=== PATIENT | male | born 1980 | race Caucasian/White ===

== ENCOUNTER 2020-06-25 06:00 | Outpatient (RCR) | payer OTHER, SELFPAY ==
--- NOTE | 2020-06-25 14:34 | P.PNPSP_ITS ---
Subjective Subjective Date of Service: 06/25/20 Reason For Visit: F31.81 Interim History: Pedro reports he is tolerating medications well. Finds the Seroquel amazing for assisting with sleep and mood. Does reports feeling physically tired . Believes this is related to his depression, ADHD and boredom. Reports he will begin [facility] three times per week, MWF for one hour. Reflects that pre-pandemic, he felt less depressed and well when he had daily stimulation, different tasks and activities and an opportunity to process things. Plans to meet with his prescriber on 06/28 and will discuss titration of Strattera as planned. Also considering a return to [facility] (where he is a member) as he has been informed they are open and members are being welcomed to return. Asks to hold labs until he meets with OP team. Medication Compliance: Yes Side effects from medications: No Attending Groups: Yes Mental Status Exam Mental Status Exam Patient Appearance: Fatigued Patient Orientation: Person, Place, Time and Situation Level of Consciousness: Awake and Appropriate Patient Behavior: Appropriate Mood Description: Calm Affect Description: Calm Patient Cognition Impaired: No Ability to Follow Directions: Excellent Speech Pattern: Clear Memory Description: Intact Hallucinations: None Delusions: Not Present Thought Process: Intact Depressive Symptoms: Increased Fatigue and Loss of Energy Judgement: Good Diagnostics Labs Labs: Plans to do these with OP team. Will order if pt reconsiders. Assessment & Plan Patient educated on: medication risk/benefits and therapeutic strategies Informed Consent: understands Reason for contiued partial hosp. stay Substantial Risk for: rapid decompensation Certification I certify that partial hospital treatment is medically necessary due to the symptoms and problems resulting from the patient's mental illness and the failure to treat the patient at the partial hospital level of care would likely result in the patient requiring inpatient psychiatric care which could not be prevented at a less intensive level of care. Greater than 50% of the session was spent on counseling and/or coordination of care Discharge Plan Discharge Attending provider: John Mueller Additional Instructions: No medication changes today. Medications: No Action Depakote 250 mg 250 mg PO DAILY RF: 0 Depakote 500 mg 500 mg PO DAILY RF: 0 Seroquel 25 mg 25 mg PO BID RF: 0 Strattera 18 mg 18 mg PO BID RF: 0 hydroxyzine pamoate 25 mg 25 - 50 mg PO Q6-8H PRN (Reason: Anxiety) RF: 0 omeprazole 20 mg 20 mg PO DAILY RF: 0 levothyroxine 75 mcg 75 mcg PO DAILY RF: 0
== END 2020-06-25 23:55 | disposition home or self-care (01) ==
LOC: HO.PHPA 06:00
PROVIDERS: Visit Provider Psychiatry & Neurology Psychiatry
DX: F31.81 Bipolar II disorder (principal); F41.1 Generalized anxiety disorder; F90.9 Attention-deficit hyperactivity disorder, unspecified type; F12.20 Cannabis dependence, uncomplicated
CPT/HCPCS: 90853; 99213

== ENCOUNTER 2020-07-12 10:01 | Outpatient (REF) | payer MEDICAID, SELFPAY ==
[2020-07-12 11:52] LABS: Alanine Aminotransferase 31 U/L (0-40); Albumin Level 4.2 g/dL (3.5-5.0); Alkaline Phosphatase 68 U/L (39-117); Aspartate Amino Transferase 17 U/L (5-37); Bilirubin Direct 0.2 mg/dL (0.0-0.5); Bilirubin Total 0.2 mg/dL (0.0-1.0); Total Protein 7.1 g/dL (6.5-8.0)
[2020-07-12 12:08] LABS: Amphetamine Screen Urine Not Detected (Not Detect); Barbiturates, Urine Not Detected (Not Detect); Benzodiazepines Screen Urine Not Detected (Not Detect); Cannabinoid Screen Urine Not Detected (Not Detect); Cocaine Screen Urine Not Detected (Not Detect); Opiate Screen Urine Not Detected (Not Detect); Phencyclidine Screen Urine Not Detected (Not Detect)
[2020-07-12 12:26] LABS: Valproate 39.3 mcg/mL (50.0-100.0)
== END 2020-07-12 10:02 | disposition home or self-care (01) ==
LOC: HO.LAB 10:01
PROVIDERS: Absent Provider Clinical Nurse Specialist Psychiatric/Mental Health, Adult; PCP Internal Medicine; Visit Provider Nurse Practitioner Family
DX: F12.90 Cannabis use, unspecified, uncomplicated (principal); F31.70 Bipolar disorder, currently in remission, most recent episode unspecified
CPT/HCPCS: 80076; 80164; 80307

== ENCOUNTER 2020-09-08 15:05 | Outpatient (REF) | payer MEDICAID, SELFPAY ==
[2020-09-08 16:07] LABS: Alanine Aminotransferase 34 U/L (0-40); Albumin Level 4.2 g/dL (3.5-5.0); Alkaline Phosphatase 66 U/L (39-117); Aspartate Amino Transferase 20 U/L (5-37); Bilirubin Direct 0.2 mg/dL (0.0-0.5); Bilirubin Total 0.5 mg/dL (0.0-1.0); Total Protein 7.1 g/dL (6.5-8.0)
[2020-09-08 16:13] LABS: Valproate 45.9 mcg/mL (50.0-100.0)
[2020-09-08 16:33] LABS: Amphetamine Screen Urine Not Detected (Not Detect); Barbiturates, Urine Not Detected (Not Detect); Benzodiazepines Screen Urine Not Detected (Not Detect); Cannabinoid Screen Urine Not Detected (Not Detect); Cocaine Screen Urine Not Detected (Not Detect); Opiate Screen Urine Not Detected (Not Detect); Phencyclidine Screen Urine Not Detected (Not Detect)
== END 2020-09-08 15:06 | disposition home or self-care (01) ==
LOC: HO.LAB 15:05
PROVIDERS: PCP Internal Medicine; Visit Provider Nurse Practitioner Family
DX: F12.90 Cannabis use, unspecified, uncomplicated (principal); F31.70 Bipolar disorder, currently in remission, most recent episode unspecified
CPT/HCPCS: 80076; 80164; 80307

== ENCOUNTER 2020-11-29 10:12 | Outpatient (REF) | payer MEDICAID, SELFPAY ==
[2020-11-29 11:20] LABS: Alanine Aminotransferase 59 U/L (0-40); Albumin Level 4.4 g/dL (3.5-5.0); Alkaline Phosphatase 69 U/L (39-117); Aspartate Amino Transferase 27 U/L (5-37); Bilirubin Direct 0.2 mg/dL (0.0-0.5); Bilirubin Total 0.3 mg/dL (0.0-1.0); Total Protein 7.3 g/dL (6.5-8.0)
[2020-11-29 11:30] LABS: Valproate 63.8 mcg/mL (50.0-100.0)
== END 2020-11-29 10:13 | disposition home or self-care (01) ==
LOC: HO.LAB 10:12
PROVIDERS: PCP Internal Medicine; Visit Provider Nurse Practitioner Family
DX: F31.9 Bipolar disorder, unspecified (principal)
CPT/HCPCS: 36415; 80076; 80164

== ENCOUNTER 2023-08-01 11:06 | Outpatient (REF) | payer MEDICARE, MEDICAID, SELFPAY ==
[2023-08-01 15:14] LABS: TSH reflex Free T4 2.04 uIU/mL (0.32-4.0)
== END 2023-08-01 11:07 | disposition home or self-care (01) ==
LOC: HO.CHCLDS 11:06
PROVIDERS: Visit Provider Internal Medicine
DX: E03.8 Other specified hypothyroidism (principal)
CPT/HCPCS: 36415; 84443

== ENCOUNTER 2023-08-15 11:33 | Outpatient (REF) | payer MEDICARE, MEDICAID, SELFPAY | END 2023-08-15 11:34 | disposition home or self-care (01) | LOC: HO.CHCLDS 11:33 | PROVIDERS: Visit Provider Nurse Practitioner Family | DX: F31.77 Bipolar disorder, in partial remission, most recent episode mixed (principal); Z79.899 Other long term (current) drug therapy | CPT/HCPCS: 36415; 80164 ==

== ENCOUNTER 2023-10-22 14:50 | Outpatient (REF) | payer MEDICARE, MEDICAID, SELFPAY ==
[2023-10-22 18:12] LABS: Influenza A PCR NEGATIVE (Negative); Influenza B PCR NEGATIVE (Negative); Resp Syncy Virus RNA Qual PCR NEGATIVE (Negative); SARS COV2 PCR INHOUSE NEGATIVE (Negative)
== END 2023-10-22 14:51 | disposition home or self-care (01) ==
LOC: HO.CHCLNP 14:50
PROVIDERS: Visit Provider Family Medicine
DX: J06.9 Acute upper respiratory infection, unspecified (principal); Z11.52 Encounter for screening for COVID-19
CPT/HCPCS: 0241U

== ENCOUNTER 2023-11-28 12:43 | Outpatient (REF) | payer MEDICARE, MEDICAID, SELFPAY ==
[2023-11-28 15:32] LABS: Alanine Aminotransferase 35 U/L (0-40); Albumin Level 4.4 g/dL (3.5-5.0); Alkaline Phosphatase 74 U/L (39-117); Anion Gap 12 (12-20); Aspartate Amino Transferase 20 U/L (5-37); Bilirubin Total 0.5 mg/dL (0.0-1.0); Blood Urea Nitrogen 16 mg/dL (9-16); Calcium 9.4 mg/dL (8.4-10.2); Carbon Dioxide 27 mmol/L (22-29); Chloride 103 mmol/L (96-108); Cholesterol 115 mg/dL (<200); Estimated Glomerular Filt Rate > 60; Glucose Random 69 mg/dL (60-115); HDL Cholesterol 38 mg/dL (>40); LDL Cholesterol Calculated 50 mg/dL (<100); Potassium 3.9 mmol/L (3.3-5.1); Sodium 138 mmol/L (135-145); Total Protein 7.6 g/dL (6.5-8.0); Triglycerides 137 mg/dL (<150)
== END 2023-11-28 12:44 | disposition home or self-care (01) ==
LOC: HO.CHCLDS 12:43
PROVIDERS: Visit Provider Internal Medicine
DX: E78.00 Pure hypercholesterolemia, unspecified (principal)
CPT/HCPCS: 36415; 80053; 80061

== ENCOUNTER 2025-02-02 10:07 | Outpatient (REF) | payer MEDICARE, MEDICAID, SELFPAY ==
--- OUTSIDE RECORDS SUMMARY | 2025-02-02 10:35 | XMS_ITS | Encounter Summary ---
Author Organization [employer] Address [address] [place] [address] 7 [place] [address] Care Team Providers Care Riding Double Name Role Phone Yamileth Butler MD Primary Care Provider Oscar Gong CUSTODIAL MANAGER Unavailable Unavailable Joel Retana Unavailable Gia Santana RN Unavailable [phone] Encounter Details Date Type Department Care Team (Late st Contact Info) Description 12/12/2022 Abstract [facility] [address] [place] [address] Yamileth Butler MD [address] [place], [place] [id number] Social History Tobacco Use Types Packs/Day Years Used Date Smoking Tobacco: Never Assessed Sex and Gender Information Value Date Recorded Sex Assigned at Male 07/24/2022 10:22 AM EDT Legal Sex Male 10:22 AM EDT Gender Identity Male 07/24/2022 10:22 AM EDT Sexual Orientation Straight 07/24/2022 10 :22 AM EDT documented as of this encounter Plan of Treatment Not on file documented as of this encounter Visit Diagnoses Not on filedocumented in this encounter Additional Health Concerns Assessment Noted Time PHQ-9 Depression Total Score: 2 12/01/19 23 11:07 AM EST documented as of this encounter Care Teams Riding Double Relationship Specialty Start Date End Date Yamileth Butler MD [address] [place] [address] PCP - General Internal Medicine 1/1/19 Oscar Gong FNP [address] [place] [address] Nurse Practitioner Family Medicine 08/14/23 Joel Retana Community Health Worker 02/22/24 Gia Santana RN [address] [place] [address] Sheeter Operator 02/22/24 04/01/24 [facility] 03/17/20 documented as of this encounter
--- OUTSIDE RECORDS SUMMARY | 2025-02-02 10:35 | XMS_ITS | Encounter Summary ---
Author Organization [employer] Address [address] [place] [address] Care Team Providers Care Insulation Board Coater Operator Name Role Phone Yamileth Butler MD Primary Care Provider [phone] Oscar Gong Unavailable Unavailable Encounter Details Date Type Department Care Team (Latest Contact Info) Description 01/29/2025 Travel Social History Tobacco Use Types Packs/Day Years Used Date Smoking Tobacco: Every Day Cigarettes Passive Smoke Exposure: Never Smokeless Tobacco: Never Alcohol Use Standard Drinks/Week Comments Never 0 (1 standard drink = 0.6 oz pur e alcohol) Depression Answer Date Recorded Patient Health Questionnaire-9 Score 0 02/25/2024 Patient Health Questionnaire-9 Score 0 02/25/2024 Last PHQ-9: Questionnaire Data Not on file 0 02/25/2024 Housing Stability Answer Date Recorded What is your housing situation today? I have claudia howe 08/01/[address] you li ve. Do you have problems with any of the following? None of the above 08/01/2023 Food Insecurity Answer Date Recorded Within the past 12 months, y ou worried that your food would run out before you got money to buy more: Never True 08/01/2023 Within the past 12 months,th e food you bought just didn't last and you didn't have enough money to get more: Never True 04/2023 Transportation Answer Date Recorded In the past 12 months, has l ack of transportation kept you from medical appts, meetings, work or from getting things needed for daily living? No 08/01/2023 Utilities Answer Date Recorded In the past 12 months, has t he electric, gas, oil or water company threatened to shut off services in your home? No 08/01/2023 Depression Answer Date Recorded Patient Health Questionnaire-2 Score 0 02/25/2024 Sex and Gender Information Value Date Recorded [...] Assessment Noted Time PHQ-9 Depression Total Score: 0 02/25/20 24 11:38 AM EDT documented as of this encounter Care Teams Insulation Board Coater Operator Relationship Specialty Start Date End Date Yamileth Butler MD [address] [place] [address] PCP - General Internal Medicine 09/24/18 Oscar Gong FNP [address] [place] [address] Nurse Practitioner Family Medicine 08/14/23 [facility] 03/17/20 documented as of this encounter
--- OUTSIDE RECORDS SUMMARY | 2025-02-02 10:35 | XMS_ITS | Encounter Summary ---
Author Organization [employer] Address [address] [facility] [address] [place] [address] Care Team Providers Care Currency Examiner Name Role Phone Yamileth Butler MD Primary Care Provider [phone] Oscar Gong WASHROOM CLEANER Unavailable Unavailable Joel Retana Unavailable Gai Santana RN Unavailable [phone] Encounter Details Date Type Department Care Team (Late st Contact Info) Description 03/28/2023 Abstract [facility] [address] [place] [address] Yamileth Butler MD [address] [place] [address] Social History Tobacco Use Types Packs/Day Years Used Date Smoking Tobacco: Never Assessed Sex and Gender Information Value Date Recorded Sex Assigned at Male 07/24/2022 10:22 AM EDT Legal Sex Male 10:22 AM EDT Gender Identity Male 07/24/2022 10:22 AM EDT Sexual Orientation Straight 07/24/2022 10 :22 AM EDT COVID-19 Exposure Response Date Recorded In the last 10 days, have yo u been in contact with someone who was confirmed or suspected to have Coronavirus/COVID-19? No / Unsure 03/26/2023 10:54 AM EDT documented as of this encounter Plan of Treatment Not on file documented as of this encounter Visit Diagnoses Not on filedocumented in this encounter Additional Health Concerns Assessment Noted Time PHQ-9 Depression Total Score: 4 02/14/20 23 3:10 PM EDT documented as of this encounter Care Teams Currency Examiner Relationship Specialty Start Date End Date Yamileth Butler MD [address] [place] [address] PCP - General Internal Medicine 09/24/18 Oscar Gong FNP [address] [place] [address] Nurse Practitioner Family Medicine 08/14/23 Joel Retana Community Health Worker 02/22/24 Gia Santana RN [address] [place] [address] Foundry Worker General 02/22/24 04/01/24 [facility] 03/17/20 documented as of this encounter
--- OUTSIDE RECORDS SUMMARY | 2025-02-02 10:35 | XMS_ITS | Encounter Summary ---
Author Organization [employer] Address [address] [place] [address] 7 [place] [address] Care Team Providers Care Audio Visual Technician Name Role Phone Yamileth Butler MD Primary Care Provider [phone] Oscar Gong Unavailable Unavailable Joel Retana Unavailable Gia Santana RN Unavailable [phone] Encounter Details Date Type Department Care Team (Late st Contact Info) Description 11/07/2022 Orders Only [facility] [address] [place] [address] Courtney Antony LPN Social History Tobacco Use Types Packs/Day Years [...] Assessment Noted Time PHQ-9 Depression Total Score: 3 10/05/19 23 11:11 AM EST documented as of this encounter Care Teams Audio Visual Technician Relationship Specialty Start Date End Date Yamileth Butler MD [address] [place] [address] PCP - General Internal Medicine 09/24/18 Oscar Gong FNP [address] [place] [address] Nurse Practitioner Family Medicine 08/14/23 Joel Retana Community Health Worker 02/22/24 Gia Santana RN [address] [place] [address] Coffee Urn Attendant 02/22/24 04/01/24 [facility] 03/17/20 documented as of this encounter
--- OUTSIDE RECORDS SUMMARY | 2025-02-02 10:35 | XMS_ITS | Encounter Summary ---
Author Organization [email or web address] Address [address] [facility] [address] [place] [address] Care Team Providers Care Track Fitter Name Role Phone Yamileth Butler MD Primary Care Provider [phone] Oscar Gong Unavailable Unavailable Encounter Details Date Type Department Care Team (Latest Contact Info) Description 01/29/2025 2:30 PM EDT Office Visit [facility] [address] [place] [address] Yamileth Butler MD [address] [place] [address] Hypercholesterolemia (Primary Dx); Elevated BP without diagnosis of hypertension; Class 1 obesity due to excess calories with serious comorbidity and body mass index (BMI) of 32.0 to 32.9 in adult; Bipolar disorder, in partial remission, most recent episode mixed (CMS/HCC); Other specified hypothyroidism; Encounter for immunization Social History Tobacco Use Types Packs/Day Years [...] t he electric, gas, oil or water [employer] threatened to shut off services in your home? No 08/01/2023 Depression Answer Date Recorded Patient Health Questionnaire-2 Score 0 02/25/2024 Sex and Gender Information Value Date Recorded Sex Assigned at Male 07/24/2022 10:22 AM EDT Legal Sex Male 10:22 AM EDT Gender Identity Male 07/24/2022 10:22 AM EDT Sexual Orientation Straight 07/24/2022 10 :22 AM EDT documented as of this encounter Last Filed Vital Signs Vital Sign Reading Time Taken Comments Blood Pressure 140/80 01/29/2025 2:20 PM EDT Pulse 85 01/29/2025 2:20 PM EDT Temperature 36.8 ??C (98.2 ??F) 01/29/2025 2:20 PM ED T Respiratory Rate 20 01/29/2025 2:20 PM EDT Oxygen Saturation 97% 01/29/2025 2:20 PM EDT Inhaled Oxygen Concentration - - Weight 101 kg (223 lb) 01/29/2025 2:20 PM EDT Height 177.8 cm (5' 10 ) 01/29/2025 2:20 PM EDT Body Mass Index 32 01/29/2025 2:20 PM EDT documented in this encounter Progress Notes * Yamileth Butler MD - 01/29/2025 2:30 PM EDT SUBJECTIVE Pedro King is a 44 y.o. male who presents for No chief complaint on file.. HPI Denies any acute events since the last visit. Patient is otherwise compliant with his regular medication and follows up with his therapist and psychiatrist. He states that he is having a good day today. Patient Active Problem List Diagnosis Bipolar disorder, in partial remission, most recent episode mixed (CMS/HCC) ADHD, adult residual type Marijuana dependence (CMS/HCC) Hypercholesterolemia Upper respiratory tract infection Vertigo No Known Allergies Current Outpatient Medications on File Prior to Visit Medication Sig Dispense Refill Aspirin Low Dose 81 MG EC tablet TAKE 1 TABLET (81 MG) BY MOUTH IN THE MORNING 90 tablet 1 atomoxetine (Strattera) 18 MG capsule Take 1 capsule (18 mg) by mouth 2 times daily. Swallow capsule whole; do not open. 180 capsule 3 atorvastatin (Lipitor) 40 MG tablet TAKE 1 TABLET BY MOUTH EVERY DAY atorvastatin (Lipitor) 40 MG tablet TAKE 1 TABLET BY MOUTH EVERY DAY 90 tablet 1 azithromycin (Zithromax) 250 MG tablet 500 mg on day 1, 250 mg day 2 to 5 6 tablet 0 cholecalciferol (Vitamin D-3) 50 MCG (2000 UT) capsule 1 capsule a day cholecalciferol (Vitamin D-3) 50 MCG (2000 UT) capsule TAKE 1 CAPSULE BY MOUTH EVERY DAY 90 capsule1 cholecalciferol VITAMIN D (Vitamin D-3) 50 MCG (2000 UT) capsule TAKE 1 CAPSULE BY MOUTH EVERY DAY 90 capsule 3 divalproex (Depakote ER) 500 MG 24 hr tablet TAKE 1 TABLET BY MOUTH THREE TIMES DAILY. DO NOT CRUSH, CHEW, OR SPLIT. 270 tablet 3 guaiFENesin (Mucinex) 600 MG 12 hr tablet Take 2 tablets (1,200 mg) by mouth 2 times daily. Do not crush, chew, or split. 30 tablet 0 hydrOXYzine HCl (Atarax) 25 MG tablet Take 1-2 tablets (25-50 mg) by mouth every 6 (six) hours if needed for anxiety. 200 tablet 3 isosorbide mononitrate ER (Imdur) 30 MG 24 hr tablet Take 1 tablet (30 mg) by mouth in the morning.Do not crush or chew. 30 tablet 3 isosorbide mononitrate ER (Imdur) 30 MG 24 hr tablet TAKE 1 TABLET BY MOUTH EVERY MORNING 90 tablet1 levothyroxine (Synthroid, Levoxyl) 75 MCG tablet TAKE 1 TABLET BY MOUTH EVERY DAY 90 tablet 1 levothyroxine (Synthroid, Levoxyl) 75 MCG tablet TAKE 1 TABLET BY MOUTH EVERY DAY IN THE MORNING 90tablet 3 Multiple Vitamin (Daily-Paulino Multivitamin) tablet TAKE 1 TABLET BY MOUTH EVERY DAY 90 tablet 1 Multiple Vitamin (Multi-Vitamin) tablet take 1 Tablet by Oral route once nicotine (Nicoderm CQ) 14 MG/24HR patch Place 1 patch on the skin 1 (one) time each day at the sametime. 30 patch 0 omeprazole (PriLOSEC) [address] capsule take 1 capsule by oral route every day before a meal omeprazole (PriLOSEC) [address] capsule TAKE 1 CAPSULE BY MOUTH EVERY DAY BEFORE A MEAL 90 capsule 1 omeprazole (PriLOSEC) [address] capsule TAKE 1 CAPSULE BY MOUTH EVERY DAY BEFORE A MEAL 90 capsule 1 QUEtiapine (SEROquel) 25 MG tablet Take 1 tablet (25 mg) by mouth 2 times daily. 180 tablet 3 Tirzepatide-Weight Management (Zepbound) 2.5 MG/0.5ML solution auto-injector Inject 0.5 mL (2.5 mg)under the skin 1 (one) time per week. 2 mL 1 No current facility-administered medications on file prior to visit. Review of Systems OBJECTIVE Vitals: 01/29/25 1420 BP: (!) 140/80 BP Location: Left arm Patient Position: Sitting BP Cuff Size: Adult long Pulse: 85 Resp: 20 Temp: 98.2 ??F (36.8 ??C) TempSrc: Oral SpO2: 97% Weight: 223 lb (101 kg) Height: 5' 10 (1.778 m) Physical Exam Constitutional: General: He is not in acute distress. Appearance: Normal appearance. He is obese. He is not ill-appearing or diaphoretic. Cardiovascular: Rate and Rhythm: Normal rate. Pulmonary: Effort: Pulmonary effort is normal. No respiratory distress. Breath sounds: No stridor. No wheezing or rhonchi. Neurological: Mental Status: He is alert. Psychiatric: Mood and Affect: Mood normal. Assessment/Plan Assessment/Plan Diagnoses and all orders for this visit: Hypercholesterolemia Comments: Low-cholesterol diet Repeat lipid panel. Patient will be contacted with results. To continue with Lipitor 40 mg daily. Orders: - CBC auto differential; Future - Comprehensive Metabolic Panel; Future - Lipid Panel, Standard; Future - TSH W/Reflex to FT4; Future Elevated BP without diagnosis of hypertension Comments: Blood pressure is borderline DASH diet recommended BP check at home. Keep the log for the next visit. Class 1 obesity due to excess calories with serious comorbidity and body mass index (BMI) of 32.0 to 32.9 in adult Dietary Recommendations: Fruits, vegetables, whole grains, protein foods, and fat-free or low-fat dairy products are healthychoices. Eat different types of protein foods in your diet. This can include seafood, lean meats, poultry, beans, peas, lentils, nuts, seeds, soy products, and eggs. Limit foods and beverages higher in added sugars, saturated fat, and sodium. Exercise Recommendations: At least 150 minutes of moderate-intensity physical activity per week, or an equivalent combinationof moderate- and vigorous-intensity activity Bipolar disorder, in partial remission, most recent episode mixed ([facility]) No acute intervention Patient is to continue with his psychotherapy Other specified hypothyroidism Comments: Repeat TSH We will adjust the medication accordingly. Orders: - CBC auto differential; Future - Comprehensive Metabolic Panel; Future - Lipid Panel, Standard; Future - TSH W/Reflex to FT4; Future documented in this encounter Miscellaneous Notes * Addendum Note - Aniyah Torres MA - 01/29/2025 2:30 PM EDTAddended by: ANIYAH TORRES on: 01/29/2025 03:20 PM Modules accepted: Orders documented in this encounter Plan of Treatment Scheduled Orders Name Type Priority Associated Diagnoses Orde r Schedule CBC auto differential Lab Routine Hypercholesterolemia Other specified hypothyroidism Expected: 01/29/2025 (Approximate), Expires: 01/29/2026 Comprehensive Metabolic Panel Lab Routine Hypercholesterolemia Other specified hypothyroidism Expected: 01/29/2025 (Approximate), Expires: 01/29/2026 Lipid Panel, Standard Lab Routine Hypercholesterolemia Other specified hypothyroidism Expected: 01/29/2025 (Approximate), Expires: 01/29/2026 TSH W/Reflex to FT4 Lab Routine Hypercholesterolemia Other specified hypothyroidism Expected: 01/29/2025 (Approximate), Expires: 01/29/2026 documented as of this encounter Visit Diagnoses Diagnosis Hypercholesterolemia- Primary Pure hypercholesterolemia Elevated BP without diagnosis of hypertension Class 1 obesity due to excess calories with serious comorbidity and body mass index (BMI) of 32.0 to 32.9 in adult Bipolar disorder, in partial remission, most recent episode mixed (CMS/HCC) Other specified hypothyroidism Encounter for immunization documented in this encounter Additional Health Concerns Assessment Noted Time PHQ-9 Depression Total Score: 0 02/25/20 24 11:38 AM EDT documented as of this encounter Care Teams Track Fitter Relationship Specialty Start Date End Date Yamileth Butler MD [address] [place] [address] PCP - General Internal Medicine 09/24/18 Oscar Gong FNP [address] [place] [address] Nurse Practitioner Family Medicine 08/14/23 [facility] 03/17/20 documented as of this encounter
--- OUTSIDE RECORDS SUMMARY | 2025-02-02 10:35 | XMS_ITS | Clinical Summary ---
Author Organization [employer] Address [address] [facility] [address] [place] [address] Care Team Providers Care Entry Level Account Manager Name Role Phone Yamileth Butler MD Primary Care Provider [phone] Oscar Gong Unavailable Unavailable Allergies No known active allergies Medications cholecalciferol (Vitamin D-3) 50 MCG (1999) capsule 1 capsule a day 2 Active Multiple Vitamin (Multi-Vitamin) tablet take 1 Tablet by Oral route once 2 Active omeprazole (PriLOSEC) [address] capsule take 1 capsule by oral route every day before a meal 2 Active atorvastatin (Lipitor) 40 MG tablet TAKE 1 TABLET BY MOUTH EVERY DAY 3 Active levothyroxine (Synthroid, Levoxyl) 75 MCG tablet TAKE 1 TABLET BY MOUTH EVERY DAY 90 tablet 1 3 Active cholecalciferol (Vitamin D-3) 50 MCG (1999) capsuleIndications :Vitamin D deficiency TAKE 1 CAPSULE BY MOUTH EVERY DAY 90 capsule 1 4 Active omeprazole (PriLOSEC) [address] capsuleIndications :Gastro-esophageal reflux disease without esophagitis TAKE 1 CAPSULE BY MOUTH EVERY DAY BEFORE A MEAL 90 capsule 1 4 Active isosorbide mononitrate ER (Imdur) 30 MG 24 hr tablet Take 1 tablet (30 mg) by mouth in the morning. Do not crush or chew. 30 tablet 3 4 Active atomoxetine (Strattera) 18 MG capsuleIndications :ADHD, adult residual type Take 1 capsule (18 mg) by mouth 2 times daily. Swallow capsule whole; do not open. 180 capsule 3 4 Active divalproex (Depakote ER) 500 MG 24 hr tabletIndications: Bipolar disorder, in partial remission, most recent episode mixed (CMS/HCC) TAKE 1 TABLET BY MOUTH THREE TIMES DAILY. DO NOT CRUSH, CHEW, OR SPLIT. 270 tablet 3 4 Active hydrOXYzine HCl (Atarax) 25 MG tabletIndications: Bipolar disorder, in partial remission, most recent episode mixed (CMS/HCC) Take 1-2 tablets (25-50 mg) by mouth every 6 (six) hours if needed for anxiety. 200 tablet 3 4 Active QUEtiapine (SEROquel) 25 MG tabletIndications: Bipolar disorder, in partial remission, most recent episode mixed (CMS/HCC) Take 1 tablet (25 mg) by mouth 2 times daily. 180 tablet 3 4 Active Multiple Vitamin (Daily-Paulino Multivitamin) tabletIndications: Vitamin D deficiency TAKE 1 TABLET BY MOUTH EVERY DAY 90 tablet 1 4 Active Aspirin Low Dose 81 MG EC tabletIndications: Primary hypertension TAKE 1 TABLET (81 MG) BY MOUTH IN THE MORNING 90 tablet 1 4 Active guaiFENesin (Mucinex) 600 MG 12 hr tabletIndications: Acute cough Take 2 tablets (1,200 mg) by mouth 2 times daily. Do not crush, chew, or split. 30 tablet 4 07/08/20 25 Active azithromycin (Zithromax) 250 MG tabletIndications: Acute cough 500 mg on day 1, 250 mg day 2 to 5 6 tablet 4 Active nicotine (Nicoderm CQ) 14 MG/24HR patchIndications:S moking Place 1 patch on the skin 1 (one) time each day at the same time. 30 patch 4 Active Tirzepatide-Weight Management (Zepbound) 2.5 MG/0.5ML solution auto-injectorIndic ations:Class 1 obesity due to excess calories with serious comorbidity and body mass index (BMI) of 32.0 to 32.9 in adult Inject 0.5 mL (2.5 mg) under the skin 1 (one) time per week. 2 mL 1 5 Active omeprazole (PriLOSEC) [address] capsuleIndications :Gastro-esophageal reflux disease without esophagitis TAKE 1 CAPSULE BY MOUTH EVERY DAY BEFORE A MEAL 90 capsule 1 5 Active isosorbide mononitrate ER (Imdur) 30 MG 24 hr tabletIndications: Cardiac microvascular disease TAKE 1 TABLET BY MOUTH EVERY MORNING 90 tablet 1 Active atorvastatin (Lipitor) 40 MG tablet TAKE 1 TABLET BY MOUTH EVERY DAY 90 tablet 1 5 Active levothyroxine (Synthroid, Levoxyl) 75 MCG tablet TAKE 1 TABLET BY MOUTH EVERY DAY IN THE MORNING 90 tablet 3 5 Active cholecalciferol VITAMIN D (Vitamin D-3) 50 MCG (1999 UT) capsuleIndications :Vitamin D deficiency TAKE 1 CAPSULE BY MOUTH EVERY DAY 90 capsule 3 5 Active Active Problems Problem Noted Date Diagnosed Date Upper respiratory tract infection 10/22/2023 Vertigo 10/22/2023 Assessment & Plan (10/22/2023 1:46 PM EST): Patient that presented visit with complaints of vertigo will be provided with medications to treat symptoms. Patient was advised to notify office if symptoms don't improve. Hypercholesterolemia 08/01/2023 08/01/2023 Bipolar disorder, in partial remission, most recent episode mixed 10/05/2022 Assessment & Plan (02/25/2024 12:35 PM EDT): Doing well. Mood swings are controlled. Continue Depakote ER 500 mg total 3 tabs daily in 2 divided doses, Quetiapine 25 mg at bedtime or BID, Hydroxyzine 25 mg prn. F/u with outpatient therapist at [facility] and [facility] as usual and intake with [facility] prescriber as planned. Any issues or concerns, call the health center. All his questions were answered and I have wished him well. He agrees with the plan. Assessment & Plan (08/14/2023 12:49 PM EST): Doing well. Mood swings are generally controlled. Will have labs for Depakote level. Continue Depakote ER 500 mg total 3 tabs daily in 2 divided doses, Quetiapine 25 mg at bedtime, Hydroxyzine 25 mg prn. F/u with outpatient therapist at [facility] and [facility] as usual.. Today 08/14/2023 provider informed the pt that I would be retiring by approx this Summer. He will request referral to agency psychiatric prescriber. Meanwhile, F/U with me in 2 months. He agrees with the plan. Assessment & Plan (05/15/2023 2:03 PM EDT): Mood swings are generally controlled, but marijuana use (and alcohol) negatively affect his mental stability. For now, continue Depakote ER 500 mg total 3 tabs daily in 2 divided doses, Quetiapine 25 mg at bedtime, Hydroxyzine 25 mg prn. F/u with therapist and [facility] as usual.. F/U with me in 6-8 weeks. He agrees with the plan. Assessment & Plan (02/13/2023 5:03 PM EDT): Mood swings are generally controlled, but sleep is intermittently problematical. Will continue to monitor. Continue Depakote ER 500 mg total 3 tabs daily in 2 divided doses, Quetiapine 25 mg at bedtime, Hydroxyzine 25 mg prn. F/u with new therapist and groups, [facility] as usual.. F/U with me in 2 months. He agrees with the plan. Assessment & Plan (11/30/2022 1:22 PM EST): Feeling tired, but mood swings are controlled. Suggest F/u with PCP for evaluation. Continue current medications, and with therapist, [facility] as usual.. F/U with me in 6-8 weeks. He agrees with the plan. Assessment & Plan (10/05/2022 1:36 PM EST): Feeling tired, but mood swings are controlled. Discussed importance of regular exercise, fresh air, and routine. Continue current medications, and with therapist, day program and [facility]. F/U with me in 6-8 weeks. He agrees with the plan. ADHD, adult residual type 10/05/2022 Assessment & Plan (02/25/2024 12:35 PM EDT): Doing well, continue Strattera 18 mg BID. Assessment & Plan (08/14/2023 12:49 PM EST): Doing well, continue Strattera 18 mg BID. Assessment & Plan (05/15/2023 2:04 PM EDT): Doing well, continue Strattera 18 mg BID. Assessment & Plan (02/13/2023 5:03 PM EDT): Doing well, continue Strattera 18 mg BID. Assessment & Plan (11/30/2022 1:22 PM EST): Doing well, continue plan. Assessment & Plan (10/05/2022 1:38 PM EST): Doing well, continue plan. Marijuana dependence 10/05/2022 Assessment & Plan (08/14/2023 12:51 PM EST): Continues using MJ several times per week. Does not feel his use is out of control currently. Reviewed risks. Assessment & Plan (05/15/2023 2:02 PM EDT): Patient has some insight into this, and understands that it is causing him harm mentally and financially, yet is not able to control his use. Reviewed that it was not a personal failure, or weakness, but that he needed to look for different supports. Urged to look into support groups. Also reminded that alcohol was also extremely risky for him in terms of dependence, and that he could not continue to take Depakote (which has been very effective) if he was using alcohol. Skipping doses of meds would worsen his mood and his ability to control impulses. Assessment & Plan (02/13/2023 5:05 PM EDT): Motivational interviewing regarding conflicting desires to avoid MJ with understanding of effect on his mood; vs. Easy access to MJ and idea that it might help him feel calm (which he knows is inaccurate). Assessment & Plan (11/30/2022 1:23 PM EST): He is aware of the effect of MJ use on his mood and is encouraged to abstain. Assessment & Plan (10/05/2022 1:38 PM EST): Mood is more stable since he has decreased use. He is aware of the effect of MJ use on his mood and is encouraged to abstain. Encounters Date Type Department Care Team Description 01/29/2025 2:30 PM EDT Office Visit [facility] [address] [place] [address] Yamileth Butler MD Hypercholesterolemia (Primary Dx); Elevated BP without diagnosis of hypertension; Class 1 obesity due to excess calories with serious comorbidity and body mass index (BMI) of 32.0 to 32.9 in adult; Bipolar disorder, in partial remission, most recent episode mixed (CMS/HCC); Other specified hypothyroidism; Encounter for immunization 01/29/2025 Travel 12/22/2024 Refill [facility] [address] [place] [address] Yamileth Butler MD Cardiac microvascular disease; Vitamin D deficiency 12/05/2024 Population Health Risk Score [facility] () Department [address] [id number] Provider, Population Health Generic 11/24/2024 Refill [facility] [address] [place] [address] Yamileth Butler MD Gastro-esophageal reflux disease without esophagitis 11/18/2024 4:00 PM EST Office Visit [facility] [address] [place] [address] Yamileth Butler MD Hypercholesterolemia (Primary Dx); Smoking; Elevated BP without diagnosis of hypertension; Dietary counseling; Exercise counseling; Class 1 obesity due to excess calories with serious comorbidity and body mass index (BMI) of 32.0 to 32.9 in adult 11/18/2024 Refill [facility] [address] [place] [address] Yamileth Butler MD Class 1 obesity due to excess calories with serious comorbidity and body mass index (BMI) of 32.0 to 32.9 in adult 11/18/2024 Travel 11/14/2024 Telephone [facility] [address] [place], [place] [id number] Yamileth Butler MD CHART PREP from Last 3 Months Immunizations Name Administration Dates Next Due Hep B, adult 06/26/2019,11/28/2018,10/31/2018 Influenza Injectable Quadriv alant Preservative Free IIV4 MDCK 07/03/2017 Influenza injectable quadriv alent IIV4 with preservative 07/18/2018 Influenza injectable quadriv alent preservative free 08/01/2023,06/13/2022,07/05/2021,2019,06/26/2019 Influenza, Split (incl. wendy fied surface antigen) 05/28/2013,06/05/2012 Influenza, seasonal, injecta ble, preservative free 07/16/2024 Pneumococcal Conjugate PCV 20 01/29/2025 Tdap 04/07/2016 Social History Tobacco Use Types Packs/Day Years Used Date Smoking Tobacco: Every Day Cigarettes Passive Smoke Exposure: Never Smokeless Tobacco: Never Tobacco Cessation:Ready to Q uit: Not Asked; Counseling Given: Not Answered Alcohol Use Standard Drinks/Week Comments Never 0 [...] Orientation Straight 07/24/2022 10 :22 AM EDT Last Filed Vital Signs Vital Sign Reading [...] Mass Index 32 01/29/2025 2:20 PM EDT Plan of Treatment Health Maintenance Due Date Last Done Comments CT Colonography 1978 Colonoscopy 1978 FIT 1978 FOBT 1978 Sigmoidoscopy 1978 Alcohol/Substance Use Screening 1990 Family Planning (PISQ) 1993 COVID-19 Vaccine ( season) 2024 09/15/2021, 02/17/2021, 01/20/2021 SDOH Screening 01/22/2025 01/23/2024 Depression Screening 02/24/2025 02/25/2024, 02/25/20 Hepatitis C Screening 01/29/2026 Postpo miguel angel from 1996 (Patient Refused) Tobacco Screening 01/29/2026 01/29/2025 DTaP/Tdap/Td Vaccines (2 - Td or Tdap) 04/07/2026 04/07/2016 Colorectal Cancer Screening 11/09/2026 FIT DNA/Cologuard 11/09/2026 11/09/2023 Zoster Vaccines (1 of 2) 2028 Lipid Panel 11/27/2028 11/28/2023, 07/26, 06/23/2021 RSV Patients and Patients Aged 60 years or older (1 - 1-dose 75+ series) 2053 Hepatitis B Vaccines Completed 06/26/2019, 11/28/2018, 10/31/2018 HIV Screening Completed 08/15/2022 Influenza Vaccine Completed 07/16/2024, , 06/13/2022, Additional history exists Pneumococcal Vaccine: Pediatrics (0 to 5 Years) and At-Risk Patients (6 to 49) Years) Completed 01/29/2025 HIB Vaccines Aged Out No longer eligi ble based on patient's age to complete this topic HPV Vaccines Aged Out No longer eligi ble based on patient's age to complete this topic Hepatitis A Vaccines Aged Out No long er eligible based on patient's age to complete this topic IPV Vaccines Aged Out No longer eligi ble based on patient's age to complete this topic Meningococcal Vaccine Aged Out No benjamin cornelio eligible based on patient's age to complete this topic RSV under 20 months Aged Out No longe r eligible based on patient's age to complete this topic Rotavirus Vaccines Aged Out No longer eligible based on patient's age to complete this topic Procedures Procedure Name Priority Date/Time Associated Diagnosis Comments LIPID PANEL, STANDARD Routine 11/28/2023 12:45 PM EST Hypercholesterolemi a LAB COLOGUARD?? COLON CANCER SCREEN Routine 11/09/2023 2:36 PM EST Screening for colon cancer HIV 1/2 ANTIGEN/ANTIBODY, FOURTH GENERATION W/RFL Routine 08/15/2022 12:05 PM EST from Last 3 Months or Most Recently Relevant to Health Maintenance Results * (ABNORMAL) Lipid Panel, Standard (11/28/2023 12:45 PM EST) Triglycerides 137 <150 mg/dL [facility] Comment:Desirable Triglyceri de: less than 150 mg/dLBorderline High Triglyceride 150-199 mg/dLHigh Triglyceride: 200-499 mg/dLVery High Triglyceride: greater than or equal to 5OO mg/dL Cholesterol 115 <200 mg/dL [facility] Comment:Desirable Cholestero l: less than 200 mg/dLBorderline High Cholesterol: 200-239 mg/dLHigh Cholesterol: greater than 239 mg/dL LDL Cholesterol Calculated 50 <100 mg/dL [facility] Comment:Desirable LDL: less than 100 mg/dLNear Optimal/Above Optimal LDL: 110- 129 mg/dLBorderline High LDL: 130-159 mg/dLHigh LDL: 160-189 mg/dLVery High LDL: greater than or equal to 190 mg/dL HDL Cholesterol 38(L) >40 mg/dL [facility] Comment:Desirable HDL: great er than 40 mg/dL Note: This HDL assay may give artificially low results in patients with liver disease. Blood Venous blood specimen / Unknown 11/28/2023 12:45 PM EST 11/28/2023 2:42 PM EST us Yamileth Butler MD LAB BLOOD ORDERABLES Final Result [facility] [address] [place] [phone] * Cologuard?? colon cancer screening (11/09/2023 2:36 PM EST) Cologuard Result Negative Negative 11/18/19 24 7:39 AM EST [facility] (CLIA #:[id number]) Comment: NEGATIVE TEST RESULT. A negative Cologuard result indicates a low likelihood that a colorectal cancer (CRC) or advanced adenoma (adenomatous polyps with more advanced pre-malignant features) ??is present. The chance that a person with a negative Cologuard test has a colorectal cancer is less than 1 in 1500 (negative predictive value >99.9%) or has an ??advanced adenoma is less than ??5.3% (negative predictive value 94.7%). These data are based on a prospective cross-sectional study of 10,000 individuals at average risk for colorectal cancer who were screened with both Cologuard and colonoscopy. (Reese Jacobson. keanu al, N Engl J Med 2014;370(14):1286- 1297) The normal value (reference range) for this assay is negative. COLOGUARD RE-SCREENING RECOMMENDATION: Periodic colorectal cancer screening is an important part of preventive healthcare for asymptomatic individuals at average risk for colorectal cancer. ??Following a negative Cologuard result, the [place] Cancer Society and U.S. Multi-Society Task Force screening guidelines recommend a Cologuard re-screening interval of 3 years. References: [place] [employer] Guideline for Colorectal Cancer Screening: https://www.cancer.org/cancer/tjkml-bhgkao-zwwpxf/ledcbqjmm-saszltejx-mynhdmj/ac s-rec ommendations.html.; Ricardo CHAPA, Angel GOEL, Helen VermaK, Colorectal Cancer Screening: Recommendations for Physicians and Patients from the U.S. Multi-Society Task Force on Colorectal Cancer Screening , Am J Gastroenterology 2017; 112:3288-9763. TEST DESCRIPTION: Composite algorithmic analysis of stool DNA-biomarkers with hemoglobin immunoassay. ?? Quantitative values of individual biomarkers are not reportable and are not associated with individual biomarker result reference ranges. Cologuard is intended for colorectal cancer screening of adults of either sex, 45 years or older, who are at average-risk for colorectal cancer (CRC). Cologuard has been approved for use by the U.S. FDA. The performance of Cologuard was established in a cross sectional study of average-risk adults aged 50-84. Cologuard performance in patients ages 45 to 49 years was estimated by sub-group analysis of near-age groups. Colonoscopies performed for a positive result may find as the most clinically significant lesion: colorectal cancer [4.0%], advanced adenoma (including sessile serrated polyps greater than or equal to 1cm diameter) [20%] or non- advanced adenoma [31%]; or no colorectal neoplasia [45%]. These estimates are derived from a prospective cross-sectional screening study of 10,000 individuals at average risk for colorectal cancer who were screened with both Cologuard and colonoscopy. (Reese Jacobson. keanu al, N Engl J Med 2014;370(14):3920-1248.) Cologuard may produce a false negative or false positive result (no colorectal cancer or precancerous polyp present at colonoscopy follow up). A negative Cologuard test result does not guarantee the absence of CRC or advanced adenoma (pre-cancer). The current Cologuard screening interval is every 3 years. ([place] [employer] Society and U.S. Multi-Society Task Force). Cologuard performance data in a 10,000 patient pivotal study using colonoscopy as the reference method can be accessed at the following location: www.Capt'nSocial/results. Additional description of the Cologuard test process, warnings and precautions can be found at www.cologThinkCERCArd.com. Stool specimen (specimen) 11/09/2023 2:36 PM EST 11/10/2023 1:02 PM EST us Yamileth Butler MD LAB MOLECULAR DIAGNOSTICS O RDERABLES Final Result [facility] (CLIA #:[id number]) [address] [place] [address], * HIV 1/2 ANTIGEN/ANTIBODY,FOURTH GENERATION W/RFL (08/15/2022 12:05 PM EST) HIV-1/2 ANTIGEN AND ANTIBODIES, 4TH GENERATION W/ REFLEX NON-REACT QUAN NON-REACT QUAN [facility] Comment: HIV-1 antigen and HIV-1/HIV-2 antibodies were not detected. There is no laboratory evidence of HIV infection. ?? PLEASE NOTE: This information has been disclosed to you from records whose confidentiality may be protected by state law. ??If your state requires such protection, then the state law prohibits you from making any further disclosure of the information without the specific written consent of the person to whom it pertains, or as otherwise permitted by law. A general authorization for the release of medical or other information is NOT sufficient for this purpose. ? For additional information please refer to http://education.StorPool.ImpulseFlyer/faq/IGD241 (This link is being provided for informational/ educational purposes only.) ? The performance of this assay has not been clinically validated in patients less than 2 years old. ?? 08/15/2022 12:0 5 PM EST Yamileth Butler MD LAB BLOOD ORDERABLES Final Result [facility] from Last 3 Months or Most Recently Relevant to Health Maintenance Insurance MEDICARE [facility] STANDARD Care Teams Entry Level Account Manager Relationship Specialty Start Date End Date Yamileth Butler MD [address] [place] [address] PCP - General Internal Medicine 09/24/18 Oscar Gong FNP [address] [place] [address] Nurse Practitioner Family Medicine 08/14/23 [facility] 03/17/20
--- OUTSIDE RECORDS SUMMARY | 2025-02-02 10:35 | XMS_ITS | Encounter Summary ---
Author Organization [employer] Address [address] [place] [address] [address] [place] [address] Care Team Providers Care Speedboat Operator Name Role Phone Yamileth Butler MD Primary Care Provider Oscar Gong Unavailable Unavailable Joel Retana Unavailable Gia Santana RN Unavailable [phone] Encounter Details Date Type Department Care Team ([facility] st Contact Info) Description 02/13/2023 Orders Only [facility] [address] [place] [address] Florencia Abdi LPN Social History Tobacco Use Types Packs/Day [...] documented as of this encounter Care Teams Speedboat Operator Relationship Specialty Start Date End Date Yamileth Butler MD [address] [place] [address] PCP - General Internal Medicine 09/24/18 Oscar Gong FNP [address] [place] [address] Nurse Practitioner Family Medicine 08/14/23 Joel Retana Community Health Worker 02/22/24 Gia Santana RN [address] [place] [id number] Product Ambassador 02/22/24 04/01/24 [facility] 03/17/20 documented as of this encounter
--- OUTSIDE RECORDS SUMMARY | 2025-02-02 10:35 | XMS_ITS | Encounter Summary ---
Author Organization [employer] Address [address] [facility] [address] [place] [address] Care Team Providers Care Electrical Power Station Technician Name Role Phone Yamileth Butler MD Primary Care Provider [phone] Oscar Gong Unavailable Unavailable Reason for Visit * Reason Comments Med Change Request Encounter Details Date Type Department Care Team ([facility] st Contact Info) Description 11/18/2024 Refill [facility] [address] [place] [address] Yamileth Butler MD [address] [place] [address] Class 1 obesity due to excess calories with serious comorbidity and body mass index (BMI) of 32.0 to 32.9 in adult Social History Tobacco Use Types Packs/Day Years [...] as of this encounter Visit Diagnoses Diagnosis Class 1 obesity due to excess calories with serious comorbidity and body mass index (BMI) of 32.0 to 32.9 in adult documented in this encounter Additional Health Concerns Assessment Noted Time PHQ-9 Depression Total Score: 0 02/25/20 24 11:38 AM EDT documented as of this encounter Care Teams Electrical Power Station Technician Relationship Specialty Start Date End Date Yamileth Butler MD [address] [place] [address] PCP - General Internal Medicine 09/24/18 Oscar Gong FNP [address] [place] [address] Nurse Practitioner Family Medicine 08/14/23 [facility] 03/17/20 documented as of this encounter
[2025-02-02 14:18] LABS: MANUAL DIFF FLAG NO
[2025-02-02 14:29] LABS: Basophils Absolute Auto 0.1 X10*3/uL (0.0-0.2); Basophils Percent Auto 1.1 % (0-2); Eosinophils Absolute Auto 0.7 X10*3/uL (0.0-0.4); Eosinophils Percent Auto 6.7 % (0-4); Hematocrit 44.4 % (42.0-52.0); Hemoglobin 14.8 g/dl (14.0-18.0); Imm Gran Abs Auto 0.06 X10*3/uL (0.00-0.03); Imm Gran Pct Auto 0.6 % (0.0-0.4); Lymphocytes Absolute Auto 2.2 X10*3/uL (1.2-4.9); Lymphocytes Percent Auto 20.5 % (20-40); Mean Corpuscular HGB Conc 33.3 g/dl (31.0-36.0); Mean Corpuscular Hemoglobin 27.7 pg (27.0-33.0); Mean Platelet Volume 13.3 fL (9.4-12.4); Monocytes Absolute Auto 1.2 X10*3/uL (0.1-1.2); Neutrophils Absolute Auto 6.4 x10*3/uL (2.0-8.3); Neutrophils Percent Auto 60.1 % (45-73); Platelet Count 202 X10*3/uL (160-400); Red Blood Count 5.35 X10*6/uL (4.60-5.80); Red Cell Distribution Width 14.6 % (11.0-16.0); White Blood Count 10.6 X10*3/uL (4.8-10.8)
[2025-02-02 14:53] LABS: Alanine Aminotransferase 31 U/L (0-40); Albumin Level 4.1 g/dL (3.5-5.0); Anion Gap 13 (12-20); Aspartate Amino Transferase 30 U/L (5-37); Bilirubin Total 0.5 mg/dL (0.0-1.0); Blood Urea Nitrogen 15 mg/dL (9-16); Calcium 9.2 mg/dL (8.4-10.2); Carbon Dioxide 24 mmol/L (22-29); Chloride 106 mmol/L (96-108); Cholesterol 112 mg/dL (<200); Estimated Glomerular Filt Rate > 60; Glucose Random 83 mg/dL (60-115); HDL Cholesterol 35 mg/dL (>40); LDL Cholesterol Calculated 47 mg/dL (<100); Potassium 4.1 mmol/L (3.3-5.1); Sodium 139 mmol/L (135-145); Total Protein 7.4 g/dL (6.5-8.0); Triglycerides 153 mg/dL (<150)
[2025-02-02 15:17] LABS: Alkaline Phosphatase 87 U/L (39-117); TSH reflex Free T4 2.09 uIU/mL (0.32-4.0)
== END 2025-02-02 10:08 | disposition home or self-care (01) ==
LOC: HO.CHCLDS 10:07
PROVIDERS: Visit Provider Internal Medicine
DX: I10 Essential (primary) hypertension (principal); E78.00 Pure hypercholesterolemia, unspecified; E03.8 Other specified hypothyroidism
CPT/HCPCS: 36415; 80053; 80061; 84443; 85025

== ENCOUNTER 2025-07-23 16:25 | Outpatient (REF) | payer MEDICARE, MEDICAID, SELFPAY ==
--- OUTSIDE RECORDS SUMMARY | 2025-07-23 14:30 | XMS_ITS | Encounter Summary ---
Author Organization [employer] Address [address] [facility] 7 [place] [address] Care Team Providers Care Cleat Feeder Name Role Phone Yamileth Butler MD Primary Care Provider [phone] Oscar Gong Unavailable Unavailable Reason for Visit * Reason Comments Follow-up Encounter Details Date Type Department Care Team ([facility] st Contact Info) Description 07/23/2025 2:30 PM EDT Office Visit [facility] [address] [place] [address] Yamileth Butler MD [address] [place] [address] Other fatigue (Primary Dx); Encounter for vaccination; Encounter for immunization; Marijuana dependence (HCC); Elevated BP without diagnosis of hypertension Social History Tobacco Use Types Packs/Day Years Used Date Smoking Tobacco: Every Day Cigarettes Passive Smoke Exposure: Never Smokeless Tobacco: Never Alcohol Use Standard Drinks/Week Comments Never 0 (1 standard drink = 0.6 oz pur e alcohol) Depression Answer Date Recorded Patient Health Questionnaire-9 Score 12 07/23/2025 Patient Health Questionnaire-9 Score 12 07/23/2025 Last PHQ-9: Questionnaire Data Not on file 1 Housing Stability Answer Date Recorded What is your housing situation today? I have claudia howe 07/23/[address] you li ve. Do you have problems with any of the following? Pests such as bugs, ants, or mice 07/23/2025 Food Insecurity Answer Date Recorded Within the past 12 months, y ou worried that your food would run out before you got money to buy more: Sometimes True 2024 Within the past 12 months,th e food you bought just didn't last and you didn't have enough money to get more: Sometimes True 07/23/2025 Transportation Answer Date Recorded In the past 12 months, has l ack of transportation kept you from medical appts, meetings, work or from getting things needed for daily living? No 07/23/2025 Utilities Answer Date Recorded In the past 12 months, has t he electric, gas, oil or water company threatened to shut off services in your home? No 07/23/2025 Depression Answer Date Recorded Patient Health Questionnaire-2 Score 4 07/23/2025 Internet Access Answer Date Recorded Internet Access Q1 Yes 07/23/2025 Internet Access Q2 Not on file 07/23/2025 Sex and Gender Information Value Date Recorded Sex Assigned at Male 07/24/2022 10:22 AM EDT Legal Sex Male 10:22 AM EDT Gender Identity Male 07/24/2022 10:22 AM EDT Sexual Orientation Straight 07/24/2022 10 :22 AM EDT documented as of this encounter Last Filed Vital Signs Vital Sign Reading Time Taken Comments Blood Pressure 140/85 07/23/2025 2:35 PM EDT Pulse 77 07/23/2025 2:35 PM EDT Temperature 36.3 C (97.4 F) 07/23/2025 2:35 PM EDT Respiratory Rate 20 07/23/2025 2:35 PM EDT Oxygen Saturation - - Inhaled Oxygen Concentration - - Weight 103 kg (226 lb) 07/23/2025 2:35 PM EDT Height 177.8 cm (5' 10 ) 07/23/2025 2:35 PM EDT Body Mass Index 32.43 07/23/2025 2:35 PM EDT documented in this encounter Functional Status * Over the past 2 weeks, how often have you been bothered by any of the following problems? Question Answer Date of Assessment Author Patient Health Questionnaire-2 Score 4 06/26 3:03 PM EDT Ana Lilia Cespedes MA * Little interest or pleasure in doing things Answer Date of Assessment Author More than half the days 07/23/2025 3:03 PM EDT Ana Lilia Gupta MA * Feeling down, depressed, or hopeless Answer Date of Assessment Author More than half the days 07/23/2025 3:03 PM EDT Ana Lilia Gupta MA * Trouble falling or staying asleep, or sleeping too much Answer Date of Assessment Author Several days 07/23/2025 3:03 PM EDT Neha Cespedes MA * Feeling tired or having little energy Answer Date of Assessment Author More than half the days 07/23/2025 3:03 PM EDT Ana Lilia Gupta MA * Poor appetite or overeating Answer Date of Assessment Author Several days 07/23/2025 3:03 PM EDT Neha Cespedes MA * Feeling bad about yourself - or that you are a failure or have let yourself or your family down Answer Date of Assessment Author Several days 07/23/2025 3:03 PM EDT Neha Cespedes MA * Trouble concentrating on things, such as reading the newspaper or watching television Answer Date of Assessment Author Several days 07/23/2025 3:03 PM Neha Saunders MA * Moving or speaking so slowly that other people could have noticed? Or the opposite - being so fidgety or restless that you have been moving around a lot more than usual. Answer Date of Assessment Author More than half the days 07/23/2025 3:03 PM EDT Ana Lilia Gupta MA * Thoughts that you would be better off or hurting yourself in some way Answer Date of Assessment Author Not at all 07/23/2025 3:03 PM Neha Saunders MA * Patient Health Questionnaire-9 Score Answer Date of Assessment Author 12 07/23/2025 3:03 PM Neha Saunders MA * How difficult have these problems made it for you to do your work, take care of things at home, or get along with other people? Answer Date of Assessment Author Very difficult 07/23/2025 3:03 PM Neha Saunders MA documented as of this encounter Progress Notes * Yamileth Butler MD - 07/23/2025 2:30 PM EDT SUBJECTIVE Pedro Kign is a 44 y.o. male who presents for Follow-up. Pedro King, 44-year-old male - Experiences increased fatigue and depressive symptoms annually during winter months - Reports persistent tiredness and physical exhaustion during winter - Attends therapy and takes prescribed medications for mental health - History of left ear pain diagnosed as otitis media on February 10, 2025, treated with antibiotics, resolved with no residual pain or drainage - Reports continued gym attendance despite fatigue - History of acute throat swelling after consuming an orange smoothie, unable to swallow - Smokes cigarettes daily and uses cannabis; experienced chills after cannabis use - Reports elevated blood pressure after consuming high sodium foods prior to visit - Denies chest pain and palpitations - Reports dizziness when thyroid function is abnormal; discontinued lithium due to thyroid-related dizziness - Received flu shot prior to current visit Problem List[1] Allergies[2] Medications Ordered Prior to Encounter[3] Review of Systems Constitutional: Positive for fatigue. Negative for appetite change, chills, diaphoresis and fever. Respiratory: Negative for cough, choking and shortness of breath. Cardiovascular: Negative for leg swelling. Gastrointestinal: Negative for anal bleeding, blood in stool and constipation. Musculoskeletal: Negative for joint swelling and myalgias. OBJECTIVE Vitals: 07/23/25 1435 BP: (!) 140/85 BP Location: Left arm Patient Position: Sitting BP Cuff Size: Adult Pulse: 77 Resp: 20 Temp: 97.4 ??F (36.3 ??C) TempSrc: Oral Weight: 226 lb (103 kg) Height: 5' 10 (1.778 m) Physical Exam Constitutional: General: He is not in acute distress. Appearance: Normal appearance. He is obese. He is not ill-appearing, toxic- appearing or diaphoretic. Cardiovascular: Rate and Rhythm: Normal rate. Pulmonary: Effort: Pulmonary effort is normal. No respiratory distress. Breath sounds: No stridor. Abdominal: General: Abdomen is flat. There is no distension. Palpations: There is no mass. Neurological: Mental Status: He is alert. Psychiatric: Mood and Affect: Mood normal. Assessment/Plan Assessment/Plan Diagnoses and all orders for this visit: Other fatigue - CBC auto differential; Future - Basic Metabolic Panel; Future - TSH W/Reflex to FT4; Future Encounter for vaccination - COVID-19 VACCINE [id number] (Comirnaty) 19 yrs + Encounter for immunization - FLU VACCINE TRIVALENT [id number] (Fluarix) 19 yrs + Marijuana dependence (HCC) Elevated BP without diagnosis of hypertension - CBC auto differential; Future - Basic Metabolic Panel; Future - TSH W/Reflex to FT4; Future Encounter for vaccination: - Influenza vaccination administered. Encounter for immunization: - Influenza immunization completed. Other fatigue: - Fatigue occurs annually during winter months; patient continues therapy and medication as prescribed. - Monitor fatigue symptoms. Continue current therapy and medication regimen. Cannabis dependence (HCC): - Cannabis use reported; recent use associated with chills and tachycardia. - Recommended cessation of cannabis use. Elevated BP without diagnosis of hypertension: - Elevated blood pressure noted, likely related to recent high sodium intake; baseline blood pressure status to be determined. - Provided blood pressure monitoring guidelines (target <140/90 mmHg). Advised dietary modifications to reduce sodium and sugar intake. Instructed to monitor blood pressure at home every other day, at least twice weekly. Ordered blood test to evaluate thyroid function. Follow-up appointment scheduled in 6 weeks to reassess blood pressure and review monitoring log. This note was drafted using Ambient (AI) technology. The patient/patient's guardian has been informed and has consented to the use of this technology: Yes [1] Patient Active Problem List Diagnosis Bipolar disorder, in partial remission, most recent episode mixed (CMS/HCC) (HCC) ADHD, adult residual type Marijuana dependence (HCC) Hypercholesterolemia Upper respiratory tract infection Vertigo [2] No Known Allergies [3] Current Outpatient Medications on File Prior to [...] tablet 0 cholecalciferol (Vitamin D-3) 50 MCG (1999 UT) capsule 1 capsule a day cholecalciferol (Vitamin D-3) 50 MCG (1999 UT) capsule TAKE 1 CAPSULE BY MOUTH EVERY DAY 90 capsule1 cholecalciferol VITAMIN D (Vitamin D-3) 50 MCG (1999 UT) capsule TAKE 1 CAPSULE BY MOUTH EVERY DAY 90 capsule 3 divalproex (Depakote ER) 500 MG 24 hr tablet TAKE 1 TABLET BY MOUTH THREE TIMES DAILY. DO NOT CRUSH, CHEW, OR SPLIT. 270 tablet 3 hydrOXYzine HCl (Atarax) 25 MG tablet Take [...] 0 omeprazole (PriLOSEC) [address] capsule TAKE 1 CAPSULE BY MOUTH EVERY DAY BEFORE A MEAL 90 capsule 1 omeprazole (PriLOSEC) [address] capsule TAKE 1 CAPSULE BY MOUTH EVERY DAY BEFORE A MEAL 90 capsule 1 pseudoephedrine (Sudafed) 30 MG tablet Take 1 tablet (30 mg) by mouth every 4 (four) hours if needed for congestion for up to 10 days. 30 tablet 0 QUEtiapine (SEROquel) 25 MG tablet TAKE 1 TABLET BY MOUTH TWICE A DAY 180 tablet 3 Tirzepatide-Weight Management (Zepbound) 2.5 MG/0.5ML solution auto-injector Inject 0.5 mL (2.5 mg)under the skin 1 (one) time per week. 2 mL 1 No current facility-administered medications on file prior to visit. documented in this encounter Plan of Treatment Upcoming Encounters Date Type Department Care Team (Late st Contact Info) Description 09/09/2025 2:30 PM EST Office Visit [facility] [address] [place] [address] Eamon Hinojosa, ASSOCIATE THEATRE PROFESSOR [address] [place] [address] Scheduled Orders Name Type Priority Associated Diagnoses Orde r Schedule Basic Metabolic Panel Lab Routine Other fatigue Elevated BP without diagnosis of hypertension Expected: 07/23/2025 (Approximate), Expires: 07/23/2026 TSH W/Reflex to FT4 Lab Routine Other fatigue Elevated BP without diagnosis of hypertension Expected: 07/23/2025 (Approximate), Expires: 07/23/2026 documented as of this encounter Procedures Procedure Name Priority Date/Time Associated Diagnosis Comments CBC WITH AUTO DIFFERENTIAL Routine 07/23/2025 4:27 PM EDT Other fatigue Elevated BP without diagnosis of hypertension documented in this encounter Results * (ABNORMAL) CBC auto differential (07/23/2025 4:27 PM EDT) White Blood Count 9.8 4.8 - 10.8 X10*3/uL [facility] Red Blood Count 5.32 4.60 - 5.80 X10*6/uL [facility] Hemoglobin 14.4 14.0 - 18.0 g/dl [facility] Hematocrit 44.8 42.0 - 52.0 % [facility] Mean Corpuscular Volume 84.2 80.0 - 98.0 fL [facility] Mean Corpuscular Hemoglobin 27.1 27.0 - 33.0 pg [facility] Mean Corpuscular HGB Conc 32.1 31.0 - 36.0 g/dl [facility] Red Cell Distribution Width 15.0 11.0 - 16.0 % [facility] Platelet Count 231 160 - 400 X10*3/uL [facility] Mean Platelet Volume 13.0(H) 9.4 - 12.4 fL [facility] Neutrophils Percent Auto 53.2 45 - 73 % [facility] Imm Gran Pct Auto 0.4 0.0 - 0.4 % [facility] Lymphocytes Percent Auto 25.9 20 - 40 % [facility] Monocytes Percent Auto 9.6 2 - 11 % [facility] Eosinophils Percent Auto 9.9(H) 0 - 4 % [facility] Basophils Percent Auto 1.0 0 - 2 % [facility] NRBC Pct Auto 0.0 0.0 - 0.2 /100WBC [facility] Neutrophils Absolute Auto 5.2 2.0 - 8.3 x10*3/uL [facility] Imm Gran Abs Auto 0.04(H) 0.00 - 0.03 X10*3/uL [facility] Lymphocytes Absolute Auto 2.5 1.2 - 4.9 X10*3/uL [facility] Monocytes Absolute Auto 0.9 0.1 - 1.2 X10*3/uL [facility] Eosinophils Absolute Auto 1.0(H) 0.0 - 0.4 X10*3/uL [facility] Basophils Absolute Auto 0.1 0.0 - 0.2 X10*3/uL [facility] NRBC Abs Auto 0.000 0.0 - 0.012 X10*3/uL [facility] Blood Venous blood specimen / Unknown 07/23/2025 4:27 PM EDT 07/23/2025 5:30 PM EDT us Yamileth Butler MD LAB BLOOD ORDERABLES Final Result Performing Organization Address City/State/[facility] Co de Phone Number [facility] [address] [place] [address] [phone] documented in this encounter Visit Diagnoses Diagnosis Other fatigue- Primary Encounter for vaccination Encounter for immunization Marijuana dependence (HCC) Cannabis dependence, unspecified abuse Elevated BP without diagnosis of hypertension documented in this encounter Additional Health Concerns Assessment Noted Time PHQ-9 Depression Total Score: 12 025 3:03 PM EDT documented as of this encounter Care Teams Cleat Feeder Relationship Specialty Start Date End Date Yamileth Butler MD [address] [place] [phone] PCP - General Internal Medicine 1/1/19 Oscar Gong FNP [address] [place] [phone] Nurse Practitioner Family Medicine 08/14/23 [facility] 03/17/20 documented as of this encounter
[2025-07-23 17:33] LABS: MANUAL DIFF FLAG NO
[2025-07-23 17:49] LABS: Hematocrit 44.8 % (42.0-52.0); Hemoglobin 14.4 g/dl (14.0-18.0); Imm Gran Abs Auto 0.04 X10*3/uL (0.00-0.03); Imm Gran Pct Auto 0.4 % (0.0-0.4); Lymphocytes Absolute Auto 2.5 X10*3/uL (1.2-4.9); Mean Corpuscular HGB Conc 32.1 g/dl (31.0-36.0); Mean Corpuscular Hemoglobin 27.1 pg (27.0-33.0); Mean Corpuscular Volume 84.2 fL (80.0-98.0); NRBC Abs Auto 0.000 X10*3/uL (0.0-0.012); NRBC Pct Auto 0.0 /100WBC (0.0-0.2); Platelet Count 231 X10*3/uL (160-400); Red Blood Count 5.32 X10*6/uL (4.60-5.80); White Blood Count 9.8 X10*3/uL (4.8-10.8)
--- OUTSIDE RECORDS SUMMARY | 2025-07-23 18:22 | XMS_ITS | Clinical Summary ---
Author Organization [facility] Address [address] [place] [address] Phone Care Team Providers Care Appliquer Name Role Phone Yamileth Butler MD Primary Care Provider [phone] Allergies No known active allergies Medications No known medications Active Problems No known active problems Medical History Medical History Date Comments Bipolar 1 disorder ([facility] V24, [facility] V28) Social History Tobacco Use Types Packs/Day Years Used Date Smoking Tobacco: Every Day Cigarettes Tobacco Cessation:Ready to Q uit: Not Asked; Counseling Given: Not Answered Sex and Gender Information Value Date Recorded Sex Assigned at Not on file Legal Sex Male 11:37 PM EST Gender Identity Not on file Sexual Orientation Not on file Obstetrics History Last Filed Vital Signs Vital Sign Reading Time Taken Comments Blood Pressure 149/98 02/10/2025 4:22 AM EDT Pulse 70 02/10/2025 4:22 AM EDT Temperature 36.9 C (98.4 F) 02/10/2025 4:22 AM EDT Respiratory Rate 16 02/10/2025 4:22 AM EDT Oxygen Saturation 98% 02/10/2025 4:22 AM EDT Inhaled Oxygen Concentration - - Weight 101 kg (223 lb) 02/10/2025 4:22 AM EDT Height 177.8 cm (5' 10 ) 02/10/2025 4:22 AM EDT Body Mass Index 32 02/10/2025 4:22 AM EDT Plan of Treatment Health Maintenance Due Date Last Done Comments Hepatitis A Vaccines (1 of 2 - Risk 2-dose series) 1997 Hepatitis C Screening 08/27/2022 Medicare Annual Wellness Visit 08/27/2022 Social Influencers of Health Screening 08/27/2022 Depression Screening 09/24/2024 COVID-19 Vaccine ( season) 2025 09/15/2021, 02/17/2021, 01/20/2021 Influenza Vaccine (#1) 2025 , 08/01/2023, 06/13/2022, Additional history exists DTaP,Tdap,and Td Vaccines (2 - Td or Tdap) 04/07/2026 04/07/2016 Colorectal Cancer Screening: FIT-DNA (Cologuard) 11/09/2026 11/09/2023 Cholesterol Screening (Lipid Panel) 02/02/2030 02/02/2025 RSV Immunization Adult Patients (1 - 1-dose 75+ series) 2053 Hepatitis B Vaccines Completed 06/26/2019, 11/28/2018, 10/31/2018 HIV Screening Completed 08/15/2022 Pneumococcal Vaccine: Pediatrics (0 to 5 Years) and At-Risk Patients (6 to 49 Years) Completed 01/29/2025 HIB Vaccines Aged Out No longer eligi ble based on patient's age to complete this topic HPV Vaccines Aged Out No longer eligi ble based on patient's age to complete this topic IPV Vaccines Aged Out No longer eligi ble based on patient's age to complete this topic MMR Vaccines Aged Out No longer eligi ble based on patient's age to complete this topic Meningococcal ACWY Vaccine Aged Out N o longer eligible based on patient's age to complete this topic Meningococcal B Vaccine Aged Out No l onger eligible based on patient's age to complete this topic RSV Immunization Patients Under 20 months Aged Out No longer eligible based on patient's age to complete this topic Varicella Vaccines Aged Out No longer eligible based on patient's age to complete this topic Insurance MEDICAID - [place] MEDICARE Care Teams Appliquer Relationship Specialty Start Date End Date Yamileth Butler MD [address] [place] [phone] PCP - General Internal Medicine 02/10/25
--- OUTSIDE RECORDS SUMMARY | 2025-07-23 18:22 | XMS_ITS | Encounter Summary ---
Author Organization [employer] Address [address] [facility] 7t [place] [address] Care Team Providers Care Restaurant Mgr Name Role Phone Yamileth Butler MD Primary Care Provider [phone] Oscar Gong LABORER HEADING Unavailable Unavailable Joel Retana Unavailable Gia Santana RN Unavailable Unavailable Encounter Details Date Type Department Care Team (Late st Contact Info) Description 02/13/2023 Orders Only [facility] & PEDS [address] [place] [address] Florencia Abdi LPN Social History Tobacco Use Types Packs/Day Years Used Date Smoking Tobacco: Never Assessed Sex and Gender Information Value Date Recorded Sex Assigned at Male 07/24/2022 10:22 AM EDT Legal Sex Male 10:22 AM EDT Gender Identity Male 07/24/2022 10:22 AM EDT Sexual Orientation Straight 07/24/2022 10 :22 AM EDT documented as of this encounter Functional Status * Over the past 2 weeks, how often have you been bothered by any of the following problems? Question Answer Date of Assessment Author Patient Health Questionnaire -2 Score 1 02/13/2023 3:10 PM EDT Jewell Garza MA * If you checked off any problems on this questionnaire so far, Question Answer Date of Assessment Author How difficult have these problems made it for you to do your work, take care of things at home, or get along with other people? Somewhat difficult 02/13/2023 3:10 PM EDT Jewell Garza MA * Over the past 2 weeks, how often have you been bothered by any of the following problems? Question Answer Date of Assessment Author Little interest or pleasure in doing things Not at all 02/13/2023 3:10 PM EDT Jewell Garza MA Feeling down, depressed, or hopeless Several days 02/13/2023 3:10 PM EDT Jewell Garza MA Trouble falling or staying asleep, or sleeping too much Several days 02/13/2023 3:10 PM EDT Gia Garza MA Feeling tired or having little energy Several days 02/13/2023 3:10 PM ROBINT Jewell Garza MA Poor appetite or overeating Not at all 02/13/2023 3: 10 PM EDT Gia Garza MA Feeling bad about yourself - or that you are a failure or have let yourself or your family down Several days 02/13/2023 3:10 PM EDT Jewell Garza MA Trouble concentrating on things, such as reading the newspaper or watching television Not at all 02/13/2023 3:10 PM ROBINT Jewell Garza MA Moving or speaking so slowly that other people could have noticed? Or the opposite - being so fidgety or restless that you have been moving around a lot more than usual. Not at all 02/13/2023 3:10 PM ROBINT Jewell Garza MA Thoughts that you would be better off or hurting yourself in some way Not at all 02/13/2023 3:10 PM EDT Mumtaz Garza MA Patient Health Questionnaire-9 Score 4 02/13/2023 3:10 PM ROBINT Stephie Garza MA documented as of this encounter Plan of Treatment Upcoming Encounters Date Type Department Care Team (Late st Contact Info) Description 09/09/2025 2:30 PM EST Office Visit [facility] MED [facility] PEDS [address] [place] [address] Eamon Hinojosa, ANA [address] [place] [address] documented as of this encounter Visit Diagnoses Not on filedocumented in this encounter Additional Health Concerns Assessment Noted Time PHQ-9 Depression Total Score: 4 02/14/20 23 3:10 PM EDT documented as of this encounter Care Teams Restaurant Mgr Relationship Specialty Start Date End Date Yamileth Butler MD [address] [place] [address] PCP - General Internal Medicine 09/24/18 Oscar Gong FNP [address] [place] [address] Nurse Practitioner Family Medicine 08/14/23 Joel Retana Community Health Worker 02/22/24 Gia Santana, RN Toll Collector Supervisor 02/22/24 04/01/24 [facility] 03/17/20 documented as of this encounter
--- OUTSIDE RECORDS SUMMARY | 2025-07-23 18:22 | XMS_ITS | Encounter Summary ---
Author Organization [employer] Address [address] [facility] 7 [place] [address] Care Team Providers Care Real Estate Leasing Manager Name Role Phone Yamileth Butler MD Primary Care Provider [phone] Oscar Gong Unavailable Unavailable Reason for Visit * Reason Comments Care Coordination CHW outreach for SDO H housing search-referral completed Encounter Details Date Type Department Care Team (Latest Contact Info) Description 07/23/2025 Patient Outreach [facility] MEDICINE [address] [place] [address] Yamileth Butler MD [address] [place] [address] Care Coordination (CHW outreach for SDOH housing search-referral completed ) Social History Tobacco Use Types Packs/Day Years [...] 3:03 PM EDT Neha Cespedes MA * Moving or speaking so slowly [...] Author Not at all 07/23/2025 3:03 PM EDT Neha Cespedes MA * Patient Health Questionnaire-9 Score Answer Date of Assessment Author 12 07/23/2025 3:03 PM EDT Neha Cespedes MA * How difficult have these problems made it for you to do your work, take care of things at home, or get along with other people? Answer Date of Assessment Author Very difficult 07/23/2025 3:03 PM EDT Neha Cespedes MA documented as of this encounter Progress Notes * John Garza - 07/23/2025 3:51 PM EDT CHW John Garza, placed outbound call to patient for assistance with SDOH as a referral was received by the provider. Patient's name and were confirmed. Patient screened positive for the following SDOH housing insecurities. Patient states is staying with her friend but is searching for her own apartment. CHW referral patient to the list of application mail out to her address on file. Patient verbalizes understanding, and able to agree with plan to follow up herself. Patient educated on extended clinic hours on Mondays through Wednesdays, and Walk-In Urgent Care Located in [facility]. Patient provided with after-hours line for [facility], , which offer night time triage service and option to transfer to sap enterprise portal consultant provider if needed. documented in this encounter Plan of Treatment Upcoming Encounters Date Type Department Care Team (Late st Contact Info) Description 09/09/2025 2:30 PM EST Office Visit [facility] MED & PEDS [address] [place] [address] Eamon Hinojosa CNP [address] [place] [address] documented as of this encounter Visit Diagnoses Not on filedocumented in this encounter Additional Health Concerns Assessment Noted Time PHQ-9 Depression Total Score: 12 025 3:03 PM EDT documented as of this encounter Care Teams Real Estate Leasing Manager Relationship Specialty Start Date End Date Yamileth Butler MD [address] [place] [address] PCP - General Internal Medicine 09/24/18 Oscar Gong FNP [address] [place] [address] Nurse Practitioner Family Medicine 08/14/23 [facility] 03/17/20 documented as of this encounter
--- OUTSIDE RECORDS SUMMARY | 2025-07-23 18:22 | XMS_ITS | Encounter Summary ---
Author Organization [employer] Address [address] [place] [id number] Care Team Providers Care Tandem Operator Name Role Phone Yamileth Butler MD Primary Care Provider [phone] Oscar Gong Unavailable Unavailable Reason for Visit * Reason Comments Med Change Request Encounter Details Date Type Department Care Team ([facility] st Contact Info) Description 11/18/2024 Refill [facility] MED & PEDS [address] [place] [address] Yamileth Butler MD [address] [place] [address] Class 1 obesity due to excess calories [...] Description 09/09/2025 2:30 PM EST Office Visit [facility] MED & PEDS [address] [place] [address] Eamon Hinojosa, ANA [address] [place] [address] documented as of this encounter Visit Diagnoses Diagnosis Class 1 obesity due to excess calories with serious comorbidity and body mass index (BMI) of 32.0 to 32.9 in adult documented in this encounter Additional Health Concerns Assessment Noted Time PHQ-9 Depression Total Score: 0 02/25/20 24 11:38 AM EDT documented as of this encounter Care Teams Tandem Operator Relationship Specialty Start Date End Date Yamileth Butler MD [address] [place] [address] PCP - General Internal Medicine 09/24/18 Oscar Gong FNP [address] [place] [address] Nurse Practitioner Family Medicine 08/14/23 [facility] 03/17/20 documented as of this encounter
--- OUTSIDE RECORDS SUMMARY | 2025-07-23 18:22 | XMS_ITS | Clinical Summary ---
Author Organization [employer] Address [address] [facility] 7[address] [place] [address] Care Team Providers Care Magazine Publisher Name Role Phone Yamileth Butler MD Primary Care Provider [phone] Oscar Gong Unavailable Unavailable Allergies No known active allergies Medications cholecalciferol (Vitamin D-3) 50 MCG (1999) capsule 1 capsule a day 2 Active Multiple Vitamin (Multi-Vitamin) tablet take 1 Tablet by Oral route once 2 Active atorvastatin (Lipitor) 40 MG tablet TAKE 1 TABLET BY MOUTH EVERY DAY 3 Active levothyroxine (Synthroid, Levoxyl) 75 MCG tablet TAKE 1 TABLET BY MOUTH EVERY DAY 90 tablet 1 3 Active cholecalciferol (Vitamin D-3) 50 MCG (1999) capsuleIndication s:Vitamin D deficiency TAKE 1 CAPSULE BY MOUTH EVERY DAY 90 capsule 1 4 Active omeprazole (PriLOSEC) [address] capsuleIndication s:Gastro-esophage al reflux disease without esophagitis TAKE 1 CAPSULE BY MOUTH EVERY DAY BEFORE A MEAL 90 capsule 1 4 Active isosorbide mononitrate ER (Imdur) 30 MG 24 hr tablet Take 1 tablet (30 mg) by mouth in the morning. Do not crush or chew. 30 tablet 3 4 Active atomoxetine (Strattera) 18 MG capsuleIndication s:ADHD, adult residual type Take 1 capsule (18 mg) by mouth 2 times daily. Swallow capsule whole; do not open. 180 capsule 3 4 Active hydrOXYzine HCl (Atarax) 25 MG tabletIndications :Bipolar disorder, in partial remission, most recent episode mixed (CMS/HCC) (HCC) Take 1-2 tablets (25-50 mg) by mouth every 6 (six) hours if needed for anxiety. 200 tablet 3 4 Active Multiple Vitamin (Daily-Paulino Multivitamin) tabletIndications :Vitamin D deficiency TAKE 1 TABLET BY MOUTH EVERY DAY 90 tablet 1 4 Active Aspirin Low Dose 81 MG EC tabletIndications :Primary hypertension TAKE 1 TABLET (81 MG) BY MOUTH IN THE MORNING 90 tablet 1 4 Active azithromycin (Zithromax) 250 MG tabletIndications :Acute cough 500 mg on day 1, 250 mg day 2 to 5 6 tablet 4 Active nicotine (Nicoderm CQ) 14 MG/24HR patchIndications: Smoking Place 1 patch on the skin 1 (one) time each day at the same time. 30 patch 4 Active Tirzepatide-Weigh t Management (Zepbound) 2.5 MG/0.5ML solution auto-injectorIndi cations:Class 1 obesity due to excess calories with serious comorbidity and body mass index (BMI) of 32.0 to 32.9 in adult Inject 0.5 mL (2.5 mg) under the skin 1 (one) time per week. 2 mL 1 5 Active isosorbide mononitrate ER (Imdur) 30 MG 24 hr tabletIndications :Cardiac microvascular disease TAKE 1 TABLET BY MOUTH EVERY MORNING 90 tablet 1 5 Active atorvastatin (Lipitor) 40 MG tablet TAKE 1 TABLET BY MOUTH EVERY DAY 90 tablet 1 5 Active levothyroxine (Synthroid, Levoxyl) 75 MCG tablet TAKE 1 TABLET BY MOUTH EVERY DAY IN THE MORNING 90 tablet 3 5 Active cholecalciferol VITAMIN D (Vitamin D-3) 50 MCG (1999 UT) capsuleIndication s:Vitamin D deficiency TAKE 1 CAPSULE BY MOUTH EVERY DAY 90 capsule 3 5 Active pseudoephedrine (Sudafed) 30 MG tabletIndications :Upper respiratory tract infection, unspecified type Take 1 tablet (30 mg) by mouth every 4 (four) hours if needed for congestion for up to 10 days. 30 tablet 5 Active QUEtiapine (SEROquel) 25 MG tabletIndications :Bipolar disorder, in partial remission, most recent episode mixed (CMS/HCC) (HCC) TAKE 1 TABLET BY MOUTH TWICE A DAY 180 tablet 3 5 Active divalproex (Depakote ER) 500 MG 24 hr tabletIndications :Bipolar disorder, in partial remission, most recent episode mixed (CMS/HCC) (HCC) TAKE 1 TABLET BY MOUTH THREE TIMES DAILY. DO NOT CRUSH, CHEW, OR SPLIT. 270 tablet 3 5 Active omeprazole (PriLOSEC) [address] capsuleIndication s:Gastro-esophage al reflux disease without esophagitis TAKE 1 CAPSULE BY MOUTH EVERY DAY BEFORE A MEAL 90 capsule 1 5 Active guaiFENesin (Mucinex) 600 MG 12 hr tabletIndications :Acute cough Take 2 tablets (1,200 mg) by mouth 2 times daily. Do not crush, chew, or split. 30 tablet 4 025 Active Problems Problem Noted Date Diagnosed Date Upper respiratory tract infection 10/22/2023 Vertigo 10/22/2023 Assessment & Plan (10/22/2023 1:46 PM EST): Patient that presented visit with complaints of vertigo will be provided with medications to treat symptoms. Patient was advised to notify office if symptoms don't improve. Hypercholesterolemia 08/01/2023 08/01/2023 Bipolar disorder, in partial remission, most recent episode mixed (CMS/HCC) 10/05/2022 Assessment & Plan (02/25/2024 12:35 PM EDT): Doing well. Mood swings are controlled. Continue Depakote ER 500 mg total 3 tabs daily in 2 divided doses, Quetiapine 25 mg at bedtime or BID, Hydroxyzine 25 mg prn. F/u with outpatient therapist at [facility] and [facility] as usual and intake with [facility] prescriber as planned. Any issues or concerns, [...] mg prn. F/u with outpatient therapist at [facility] and [facility] as usual.. Today 08/14/2023 provider [...] Encounters Date Type Department Care Team Description 07/23/2025 2:30 PM EDT Office Visit [facility] MED & PEDS [address] [place] [address] Yamileth Butler MD Other fatigue (Primary Dx); Encounter for vaccination; Encounter for immunization; Marijuana dependence (HCC); Elevated BP without diagnosis of hypertension 07/23/2025 Patient Outreach [address] [address] Yamileth Butler MD Care Coordination (CHW outreach for SDOH housing search-referral completed ) 07/23/2025 Travel 07/22/2025 Telephone [facility] MED & PEDS [address] [place] [address] Yamileth Butler MD chart prep 07/01/2025 Telephone [facility] MED & PEDS [address] [place] [address] Yamileth Butler MD Chart Prep 06/25/2025 Patient Outreach [facility] [address] [place] [address] Yamileth Butler MD Pre-visit Planning (Pre visit planning LVM ) 06/15/2025 Refill [facility] MED & PEDS [address] [place] [address] Yamileth Butler MD Cardiac microvascular disease 06/01/2025 Orders Only [facility] MED & PEDS [address] [place] [address] Yamileth Butler MD 05/29/2025 Refill [facility] MED & PEDS [address] [place] [address] Yamileth Butler MD Gastro-esophageal reflux disease without esophagitis from Last 3 Months Immunizations Immunization Administration Dates Next Due Hep B, adult 06/26/2019,11/28/2018,10/31/2018 Influenza Injectable Quadriv alant Preservative Free IIV4 MDCK 07/03/2017 Influenza injectable quadriv alent IIV4 with preservative 07/18/2018 Influenza injectable quadriv alent preservative free 08/01/2023,06/13/2022,07/05/2021,2019,06/26/2019 Influenza, Split (incl. wendy fied surface antigen) 05/28/2013,06/05/2012 Influenza, seasonal, injecta ble, preservative free 07/23/2025,07/16/2024 Pfizer Covid-19 Vaccine 12+ 07/23/2025 Pneumococcal Conjugate PCV 20 01/29/2025 Tdap 04/07/2016 [...] 20 07/23/2025 2:35 PM EDT Oxygen Saturation 96% 02/20/2025 2:21 PM EDT Inhaled Oxygen Concentration - - Weight 103 kg (226 lb) 07/23/2025 2:35 PM EDT Height 177.8 cm (5' 10 ) 07/23/2025 2:35 PM EDT Body Mass Index 32.43 07/23/2025 2:35 PM EDT Plan of Treatment Upcoming Encounters Date Type Department Care Team (Late st Contact Info) Description 09/09/2025 2:30 PM EST Office Visit [facility] MED & PEDS [address] [place], [place] [phone] Eamon Hinojosa, [facility] [address] [place], [place] [phone] Health Maintenance Due Date Last Done Comments CT Colonography 1978 Colonoscopy 1978 FIT 1978 Sigmoidoscopy 1978 Disability Screening 1978 Alcohol/Substance Use Screening 1990 Family Planning (PISQ) 1993 FOBT 11/09/2024 11/09/2023 Depression Monitoring 01/21/2026 07/23/2025, 025 Hepatitis C Screening 01/29/2026 Postpo miguel angel from 1996 (Patient Refused) DTaP/Tdap/Td Vaccines (2 - Td or Tdap) 04/07/2026 04/07/2016 SDOH Screening 07/23/2026 07/23/2025 Tobacco Screening 07/23/2026 07/23/2025 Colorectal Cancer Screening 11/09/2026 FIT DNA/Cologuard 11/09/2026 11/09/2023 Zoster Vaccines (1 of 2) 2028 Lipid Panel 02/02/2030 02/02/2025, 02/2024, 08/15/2022, Additional history exists RSV Patients and Patients Aged 60 years or older (1 - 1-dose 75+ series) 2053 Hepatitis B Vaccines Completed 06/26/2019, 11/28/2018, 10/31/2018 HIV Screening Completed 08/15/2022 Pneumococcal Vaccine: Pediatrics (0 to 5 Years) and At-Risk Patients (6 to 49) Years Completed 01/29/2025 COVID-19 Vaccine Completed 07/23/2025, , 02/17/2021, Additional history exists Influenza Vaccine Completed 07/23/2025, , 08/01/2023, Additional history exists HIB Vaccines Aged Out No longer eligi [...] fatigue Elevated BP without diagnosis of hypertension LIPID PANEL, STANDARD Routine 02/02/2025 10:09 AM EDT Hypercholesterolemia Other specified hypothyroidism LAB COLOGUARD COLON CANCER SCREEN Routine 11/09/2023 2:36 PM EST Screening for colon cancer HIV 1/2 ANTIGEN/ANTIBODY, FOURTH GENERATION W/RFL Routine 08/15/2022 12:05 PM EST from Last 3 Months or Most Recently Relevant to Health Maintenance Results * (ABNORMAL) CBC auto differential (07/23/2025 4:27 PM EDT) White Blood Count 9.8 4.8 - 10.8 X10*3/uL [facility] Red Blood Count 5.32 4.60 - 5.80 X10*6/uL [facility] Hemoglobin 14.4 14.0 - 18.0 g/dl [facility] Hematocrit 44.8 42.0 - 52.0 % [facility] Mean Corpuscular Volume 84.2 80.0 - 98.0 fL [facility] Mean Corpuscular Hemoglobin 27.1 27.0 - 33.0 pg [facility] Mean Corpuscular HGB Conc 32.1 31.0 - 36.0 g/dl [facility] Red Cell Distribution Width 15.0 11.0 - 16.0 % [facility] Platelet Count 231 160 - 400 X10*3/uL [facility] Mean Platelet Volume 13.0(H) 9.4 - 12.4 fL [facility] Neutrophils Percent Auto 53.2 45 - 73 % [facility] Imm Gran Pct Auto 0.4 0.0 - 0.4 % [facility] Lymphocytes Percent Auto 25.9 20 - 40 % [facility] Monocytes Percent Auto 9.6 2 - 11 % [facility] Eosinophils Percent Auto 9.9(H) 0 - 4 % [facility] Basophils Percent Auto 1.0 0 - 2 % [facility] NRBC Pct Auto 0.0 0.0 - 0.2 /100WBC [facility] Neutrophils Absolute Auto 5.2 2.0 - 8.3 x10*3/uL [facility] Imm Gran Abs Auto 0.04(H) 0.00 - 0.03 X10*3/uL [facility] Lymphocytes Absolute Auto 2.5 1.2 - 4.9 X10*3/uL [facility] Monocytes Absolute Auto 0.9 0.1 - 1.2 X10*3/uL [facility] Eosinophils Absolute Auto 1.0(H) 0.0 - 0.4 X10*3/uL [facility] Basophils Absolute Auto 0.1 0.0 - 0.2 X10*3/uL [facility] NRBC Abs Auto 0.000 0.0 - 0.012 X10*3/uL [facility] Blood Venous blood specimen / Unknown 07/23/2025 4:27 PM EDT 07/23/2025 5:30 PM EDT us Yamileth Butler MD LAB BLOOD ORDERABLES Final Result [facility] [address] [place] [phone] [phone] * (ABNORMAL) Lipid Panel, Standard (02/02/2025 10:09 AM EDT) Triglycerides 153(H) <150 mg/dL [facility] Comment:Desirable Triglyceri de: less than 150 mg/dLBorderline High Triglyceride 150-199 mg/dLHigh Triglyceride: 200-499 mg/dLVery High Triglyceride: greater than or equal to 5OO mg/dL Cholesterol 112 <200 mg/dL [facility] Comment:Desirable Cholestero l: less than 200 mg/dLBorderline High Cholesterol: 200-239 mg/dLHigh Cholesterol: greater than 239 mg/dL LDL Cholesterol Calculated 47 <100 mg/dL [facility] Comment:Desirable LDL: less than 100 mg/dLNear Optimal/Above Optimal LDL: 110- 129 mg/dLBorderline High LDL: 130-159 mg/dLHigh LDL: 160-189 mg/dLVery High LDL: greater than or equal to 190 mg/dL HDL Cholesterol 35(L) >40 mg/dL [facility] Comment:Desirable HDL: great er than 40 mg/dL Note: This HDL assay may give artificially low results in patients with liver disease. Blood Venous blood specimen / Unknown 02/02/2025 10:09 AM EDT 02/02/2025 2:10 PM EDT us Yamileth Butler MD LAB BLOOD ORDERABLES Final Result [facility] [address] [place] [address] [phone] * Cologuard?? colon cancer screening (11/09/2023 2:36 PM EST) Cologuard Result Negative Negative 11/18/19 7:39 AM EST [employer] (CLIA #:[id number]) Comment: NEGATIVE TEST RESULT. A negative Cologuard result indicates a low likelihood that a colorectal cancer (CRC) or advanced adenoma (adenomatous polyps with more advanced pre-malignant features) is present. The chance that a person with a negative Cologuard test has a colorectal cancer is less than 1 in 1500 (negative predictive value >99.9%) or has an advanced adenoma is less than 5.3% (negative predictive value 94.7%). These data are based on a prospective cross-sectional study of 10,000 individuals at average risk for colorectal cancer who were screened with both Cologuard and colonoscopy. (Reese Perry al, N Engl J Med 2014;370(14):8589-8037) The normal value (reference range) for this assay is negative. COLOGUARD RE-SCREENING RECOMMENDATION: Periodic colorectal cancer screening is an important part of preventive healthcare for asymptomatic individuals at average risk for colorectal cancer. Following a negative Cologuard result, the [place] Cancer Society and U.S. Multi-Society Task Force screening guidelines recommend a Cologuard re-screening interval of 3 years. References: [place] [employer] Guideline for Colorectal Cancer Screening: https://www.cancer.org/cancer/iemif-ydkquv-qckwce/tzfwlfcat-yebitgfxv-mdzifxw/ac -rec ommendations.html.; Ricardo DK, Angel CR, Helen VermaK, Colorectal Cancer Screening: Recommendations for Physicians and Patients from the U.S. Multi-Society Task Force on Colorectal Cancer Screening , Am J Gastroenterology 2017; 112:7316-1057. TEST DESCRIPTION: Composite algorithmic analysis of stool DNA-biomarkers with hemoglobin immunoassay. Quantitative values of individual biomarkers are not [...] screened with both Cologuard and colonoscopy. (Reese Puga et al, N Engl J Med 2014;370(14):2082-6017.) Cologuard may produce a false negative or false positive result (no colorectal cancer or precancerous polyp present at colonoscopy follow up). A negative Cologuard test result does not guarantee the absence of CRC or advanced adenoma (pre-cancer). The current Cologuard screening interval is every 3 years. ([place] Cancer Society and U.S. Multi-Society Task Force). Cologuard performance data in a 10,000 patient pivotal study using colonoscopy as the reference method can be accessed at the following location: www.[employer].T[employer]oy/results. Additional description of the Cologuard test process, warnings and precautions can be found at www.cologuard.com. Stool specimen (specimen) 11/09/2023 2:36 PM EST 11/10/2023 1:02 PM EST Yamileth Butler MD LAB MOLECULAR DIAGNOSTICS O RDERABLES Final Result Performing Organization Address City/[facility]/ZIP Co de Phone Number [employer] (CLIA #:[id number]) [place] [address], * HIV 1/2 ANTIGEN/ANTIBODY,FOURTH GENERATION W/RFL (08/15/2022 12:05 PM EST) HIV-1/2 ANTIGEN AND ANTIBODIES, 4TH GENERATION W/ REFLEX NON-REACT QUAN NON-REACT QUAN [facility]VERT[facility]GACY LABS Comment: HIV-1 antigen and HIV-1/HIV-2 antibodies were not detected. There is no laboratory evidence of HIV infection. PLEASE NOTE: This information has been disclosed to you from records whose confidentiality may be protected by state law. If your state requires such protection, then the state law prohibits you from making any further disclosure of the information without the specific written consent of the person to whom it pertains, or as otherwise permitted by law. A general authorization for the release of medical or other information is NOT sufficient for this purpose. For additional information please refer to http://education.[employer].Ticket Hoy/faq/HYJ150 (This link is being provided for informational/ educational purposes only.) The performance of this assay has not been clinically validated in patients less than 2 years old. 08/15/2022 12:0 5 PM EST us Yamileth Butler MD LAB BLOOD ORDERABLES Final Result Performing Organization Address [facility]/ZIP Co de Phone Number CONVERTED LEGACY LABS from Last 3 Months or Most Recently Relevant to Health Maintenance Insurance [facility] Care Teams Magazine Publisher Relationship Specialty Start Date End Date Yamileth Butler MD [address] [facility] [place] [address] PCP - General Internal Medicine 09/24/18 Oscar Gong FNP [address] [facility] [place] [address] Nurse Practitioner Family Medicine 08/14/23 [facility] 03/17/20
--- OUTSIDE RECORDS SUMMARY | 2025-07-23 18:22 | XMS_ITS | Encounter Summary ---
Author Organization [employer] Address [address] [facility] 7 [place] [address] Care Team Providers Care Personal Injury Specialist Name Role Phone Yamileth Butler MD Primary Care Provider [phone] Oscar Gong Unavailable Unavailable Encounter Details Date Type Department Care Team ([facility] st Contact Info) Description 06/01/2025 Orders Only [facility] MED & PEDS [address] [place], [place] [phone] Yamileth Butler MD [address] [place] [address] Social History Tobacco Use Types Packs/Day Years [...] Upcoming Encounters Date Type Department Care Team ([facility] st Contact Info) Description 09/09/2025 2:30 PM EST Office Visit [facility] MED & PEDS [address] [place] [address] Eamon Hinojosa CNP [address] [place] [address] documented as of this encounter Visit Diagnoses Not on filedocumented in this encounter Additional Health Concerns Assessment Noted Time PHQ-9 Depression Total Score: 0 02/25/20 24 11:38 AM EDT documented as of this encounter Care Teams Personal Injury Specialist Relationship Specialty Start Date End Date Yamileth Butler MD [address] [place] [address] PCP - General Internal Medicine 09/24/18 Oscar Gong FNP [address] [place] [address] Nurse Practitioner Family Medicine 08/14/23 [facility] 03/17/20 documented as of this encounter
--- OUTSIDE RECORDS SUMMARY | 2025-07-23 18:22 | XMS_ITS | Encounter Summary ---
Author Organization [employer] Address [address] [place] [address] Care Team Providers Care Senior Principal Process Engineer Name Role Phone Yamileth Butler MD Primary Care Provider [phone] Oscar Gong Unavailable Unavailable Encounter Details Date Type Department Care Team (Latest Contact Info) Description 07/23/2025 Travel Social History Tobacco Use Types Packs/Day [...] is your housing situation today? I have claudiaterri howe 07/23/[address] you [...] the past 12 months, has t he [employer], [employer], oil or water [employer] threatened to shut off services in your [...] Cespedes [place] documented as of this encounter Plan of Treatment Upcoming Encounters Date Type Department Care Team (Late st Contact Info) Description 09/09/2025 2:30 PM EST Office Visit [facility] MED & PEDS [address] [place] [address] Eamon Hinojosa, ANA [address] [place] [address] documented as of this encounter Visit Diagnoses Not on filedocumented in this encounter Additional Health Concerns Assessment Noted Time PHQ-9 Depression Total Score: 12 025 3:03 PM EDT documented as of this encounter Care Teams Senior Principal Process Engineer Relationship Specialty Start Date End Date Yamileth Butler MD [address] [place] [address] PCP - General Internal Medicine 09/24/18 Oscar Gong FNP [address] [place] [address] Nurse Practitioner Family Medicine 08/14/23 [facility] 03/17/20 documented as of this encounter
--- OUTSIDE RECORDS SUMMARY | 2025-07-23 18:22 | XMS_ITS | Encounter Summary ---
Author Organization [employer] Address [address] [facility] 7 [place] [address] Care Team Providers Care Geophysical Prospecting Permit Agent Name Role Phone Yamileth Butler MD Primary Care Provider [phone] Oscar Gong Unavailable Unavailable Reason for Visit * Reason Onset Date Comments ER Follow-up 02/18/2025 Nurse Triage 02/18/2025 Encounter Details Date Type Department Care Team (Late st Contact Info) Description 02/18/2025 Telephone [facility] [address] [place] [address] Yamileth Butler MD [address] [place] [address] ER Follow-up; Nurse Triage Social History Tobacco Use Types Packs/Day Years [...] AM EDT documented as of this encounter Miscellaneous Notes * Telephone Encounter - Cindy Servin RN - 02/18/2025 9:38 AM EDT Triage call Pt was seen in [facility] ED 02/10/25, report is on the chart. Pt was dx with left otitis media and amoxicillin 500mg was prescribed tid for 10 days. Pt has 2 more days to finish antibiotics and is having left ear pain still with a popping feeling in the ear. Pt does have nasal congestion as well. ASK apt with PCP 02/20/25 @ 230pm. Pt agrees with disposition and Insurance is verified as active prior to booking. Protocol Used: Earache (Adult) Protocol-Based Disposition: See in Office or Video Visit Today or Tomorrow Positive Triage Question: * Patient wants to be seen * All higher-acuity triage questions were negative Care Advice Discussed: * Reasons To Call Back - Severe pain lasts over 2 hours after pain medicine - You become worse * Telephone Encounter - Pretty Burnham - 02/18/2025 9:04 AM EDT Patient calling to report ED visit on : Date: 02/10 Hospital: [facility] ER Seen for: Earache Symptomatic Yes *if yes message should go to Triage Patient advised will forward to team nurse for follow up [phone] documented in this encounter Plan of Treatment Upcoming Encounters Date Type Department Care Team (Late st Contact Info) Description 09/09/2025 2:30 PM EST Office Visit [facility] [address] [place] [address] Eamon Hinojosa CNP [address] [place] [address] documented as of this encounter Visit Diagnoses Not on filedocumented in this encounter Additional Health Concerns Assessment Noted Time PHQ-9 Depression Total Score: 0 02/25/20 24 11:38 AM EDT documented as of this encounter Care Teams Geophysical Prospecting Permit Agent Relationship Specialty Start Date End Date Yamileth Butler MD [address] [place] [address] PCP - General Internal Medicine 09/24/18 Oscar Gong FNP [address] [place] [address] Nurse Practitioner Family Medicine 08/14/23 [facility] 03/17/20 documented as of this encounter
--- OUTSIDE RECORDS SUMMARY | 2025-07-23 18:22 | XMS_ITS | Encounter Summary ---
Author Organization [employer] Address [address] [place] [address] [address], [place] [address] Care Team Providers Care Brazer Crawler Torch Name Role Phone Yamileth Butler MD Primary Care Provider [phone] Oscar Gong SCHOOL PLANT CONSULTANT Unavailable Unavailable Joel Retana Unavailable Gia Santana RN Unavailable Unavailable Encounter Details Date Type Department Care Team (Late st Contact Info) Description 12/12/2022 Abstract [facility] [address] [place], [place] [phone] Yamileth Butler MD [address] [place], [place] [phone] Social History Tobacco Use Types Packs/Day Years [...] Description 09/09/2025 2:30 PM EST Office Visit [facility] [address] [place], [place] [phone] Eamon Hinojosa CNP [address] [place], [place] [phone] documented as of this encounter Visit Diagnoses Not on filedocumented in this encounter Additional Health Concerns Assessment Noted Time PHQ-9 Depression Total Score: 2 12/01/19 23 11:07 AM EST documented as of this encounter Care Teams Brazer Crawler Torch Relationship Specialty Start Date End Date Yamileth Butler MD [address] [place] [address] PCP - General Internal Medicine 09/24/18 Oscar Gong FNP [address] [place] [address] Nurse Practitioner Family Medicine 08/14/23 Joel Retana Community Health Worker 02/22/24 Gia Santana RN Corking Machine Operator 02/22/24 04/01/24 [facility] 03/17/20 documented as of this encounter
--- OUTSIDE RECORDS SUMMARY | 2025-07-23 18:22 | XMS_ITS | Encounter Summary ---
Author Organization [employer] Address [address] [place] [address] Care Team Providers Care Tombstone Carver Name Role Phone Yamileth Butler MD Primary Care Provider [phone] Oscar Gong Unavailable Unavailable Reason for Visit * Reason Comments Med Refill Encounter Details Date Type Department Care Team ([facility] st Contact Info) Description 06/15/2025 Refill [facility] [address] [place] [address] Yamileth Butler MD [address] [place] [address] Cardiac microvascular disease Social History Tobacco Use Types Packs/Day Years [...] housing situation today? I have claudiaterri howe 08/01/[address] you [...] Description 09/09/2025 2:30 PM EST Office Visit [facility] [address] [place] [address] Eamon Hinojosa CNP [address] [place] [address] documented as of this encounter Visit Diagnoses Diagnosis Cardiac microvascular disease Other and unspecified angina pectoris documented in this encounter Additional Health Concerns Assessment Noted Time PHQ-9 Depression Total Score: 0 02/25/20 24 11:38 AM EDT documented as of this encounter Care Teams Tombstone Carver Relationship Specialty Start Date End Date Yamileth Butler MD [address] [place] [address] PCP - General Internal Medicine 09/24/18 Oscar Gong FNP [address] [place] [address] Nurse Practitioner Family Medicine 08/14/23 [facility] 03/17/20 documented as of this encounter
--- OUTSIDE RECORDS SUMMARY | 2025-07-23 18:22 | XMS_ITS | Encounter Summary ---
Author Organization [employer] Address [address] [place] [address] [address] [place] [address] Care Team Providers Care Finnish Rubber Name Role Phone Yamileth Butler MD Primary Care Provider [phone] Oscar Gong REGISTERED VASCULAR TECHNOLOGIST (RVT) Unavailable Unavailable Joel Retana Unavailable Gia Santana RN Unavailable Unavailable Encounter Details Date Type Department Care Team (Late st Contact Info) Description 11/07/2022 Orders Only [facility] [address] [place] [address] Courtney Antony LPN Social History Tobacco Use [...] Description 09/09/2025 2:30 PM EST Office Visit [facility] [address] [place] [address] Eamon Hinojosa CNP [address] [place] [address] documented as of this encounter Visit Diagnoses Not on filedocumented in this encounter Additional Health Concerns Assessment Noted Time PHQ-9 Depression Total Score: 3 10/05/19 23 11:11 AM EST documented as of this encounter Care Teams Finnish Rubber Relationship Specialty Start Date End Date Beauzile, Thevenin, MD [address] [place] [address] PCP - General Internal Medicine 09/24/18 Oscar Gong FNP [address] [place] [address] Nurse Practitioner Family Medicine 08/14/23 Joel Retana Community Health Worker 02/22/24 Gia Santana, MARIA ELENA Maintenance Manager 02/22/24 04/01/24 [facility] 03/17/20 documented as of this encounter
--- OUTSIDE RECORDS SUMMARY | 2025-07-23 18:22 | XMS_ITS | Encounter Summary ---
Author Organization [employer] Address [address] [facility] 7 [place] [address] Care Team Providers Care Franchise Broker Name Role Phone Yamileth Butler MD Primary Care Provider [phone] Oscar Gong Unavailable Unavailable Reason for Visit * Reason Onset Date Comments chart prep 07/22/2025 Encounter Details Date Type Department Care Team ([facility] Contact Info) Description 07/22/[address] [facility] MED & PEDS [address] [place] [address] Yamileth Butler MD [address] [place] [address] chart prep Social History Tobacco Use Types Packs/Day Years [...] encounter Miscellaneous Notes * Telephone Encounter - Norberto Rankin MA - 07/22/2025 12:20 PM EDT Chart Prep Labs: done Images: done Referrals: complete Vaccines due: Covid and Flu Screenings: Overdue care gaps: SBIRT, SDOH, PHQ-9, and Disability screen documented in this encounter Plan of Treatment Upcoming Encounters Date Type Department Care Team ([facility] st Contact Info) Description 09/09/2025 2:30 PM EST Office Visit [facility] [address] [place] [address] Eamon Hinojosa CNP [address] [place] [address] documented as of this encounter Visit Diagnoses Not on filedocumented in this encounter Additional Health Concerns Assessment Noted Time PHQ-9 Depression Total Score: 0 02/25/20 24 11:38 AM EDT documented as of this encounter Care Teams Franchise Broker Relationship Specialty Start Date End Date Yamileth Butler MD [address] [place] [address] PCP - General Internal Medicine 09/24/18 Oscar Gong FNP [address] [place] [address] Nurse Practitioner Family Medicine 08/14/23 [facility] [place] [facility] 03/17/20 documented as of this encounter
--- OUTSIDE RECORDS SUMMARY | 2025-07-23 18:22 | XMS_ITS | Encounter Summary ---
Author Organization [employer] Address [address] [place] [address] 7 [place] [address] Care Team Providers Care Fisher Eel Spear Name Role Phone Yamileth Butler MD Primary Care Provider [phone] Oscar Gong TAB BUILDER Unavailable Unavailable Joel Retana Unavailable Gia Santana RN Unavailable Unavailable Encounter Details Date Type Department Care Team ([facility] Contact Info) Description 03/28/2023 Abstract [facility] MEDICINE [address] [place] [address] Yamileth Butler MD [address] [place], [place] [phone] Social History Tobacco Use Types Packs/Day Years [...] Upcoming Encounters Date Type Department Care Team ([facility] Contact Info) Description 09/09/2025 2:30 PM EST Office Visit [facility] MED & PEDS [address] [place], [place] [phone] Eamon Hinojosa CNP [address] [place] [address] documented as of this encounter Visit Diagnoses Not on filedocumented in this encounter Additional Health Concerns Assessment Noted Time PHQ-9 Depression Total Score: 4 02/14/20 23 3:10 PM EDT documented as of this encounter Care Teams Fisher Eel Spear Relationship Specialty Start Date End Date Yamileth Butler MD [address] [place] [address] PCP - General Internal Medicine 09/24/18 Oscar Gong FNP [address] [place] [address] Nurse Practitioner Family Medicine 08/14/23 Joel Retana Community Health Worker 02/22/24 Gia Santana RN Dental Biller 02/22/24 04/01/24 [facility] 03/17/20 documented as of this encounter
[2025-07-23 18:33] LABS: Anion Gap 12 (12-20); Blood Urea Nitrogen 14 mg/dL (9-16); Calcium 9.1 mg/dL (8.4-10.2); Carbon Dioxide 26 mmol/L (22-29); Chloride 110 mmol/L (96-108); Estimated Glomerular Filt Rate > 60; Potassium 3.9 mmol/L (3.3-5.1); Sodium 144 mmol/L (135-145)
== END 2025-07-23 16:26 | disposition home or self-care (01) ==
LOC: HO.CHCLDS 16:25
PROVIDERS: Visit Provider Internal Medicine
DX: R53.83 Other fatigue (principal); R03.0 Elevated blood-pressure reading, without diagnosis of hypertension
CPT/HCPCS: 36415; 80048; 84443; 85025